=== PATIENT | female | born 1930 | race Caucasian/White ===

== ENCOUNTER 2017-01-27 14:24 | Inpatient (IN) | payer MEDICARE ==
[~2017-01-27] VITALS: Ht 147.3 cm; Wt 77.6 kg
--- NOTE | 2017-01-27 14:38 | ED.REPORT ---
HPI-Extremity Problem Upper Date of Service Jan 27, 2017 ED Provider: Rick Stanley MD Danyell Stein (Tenisha) is a pleasant 86-year-old woman history of hypothyroidism presents to the [facility] emergency department after suffering ground-level fall. Reportedly "my balance left me" she fell onto her right hip and hit her head on the way to the floor on her end-table. She denies losing consciousness. Her daughter was able to give me additional history that she was attempting to move a recliner and estimates her mother was on the floor for about 10 minutes before the patient was found. Patient was unable to be maneuvered into a supine position, she received 62.5 mg of fentanyl en route via EMT as well as 32mg of ketamine. She denies any previous falls or any other instances of losing her balance in the preceding weeks. Nursing Notes Stated Complaint: POSSIBLE HUMERUS FX Nursing Notes Reviewed: Yes Allergies: Uncoded Allergies: ALL ANTIBIOTICS (Allergy, Unknown, 01/27/17) Scheduled Levothyroxine (Levothyroxine) 75 Mcg Tablet 75 MCG PO QAM General Time Seen by MD: 14:35 Chief Complaint Other (R hip Injury, Ground level fall, Head injury) Similar Sx Previous: No Past Medical History Past Medical History Hypothyroidism Past Surgical History Amputation of right foot, status post reattachment Family History Noncontributory Smoking History Never Smoker Social History Lives independently, with family in close proximity Alcohol Use: Denies alcohol use Ambulatory Status Independent Review of Systems Basic Review of Systems Eyes: Vision NL ENT: Hearing NL Respiratory: No shortness of breath Cardiovascular: No chest pain GI: No abdominal pain : No dysuria Endocrine: No cold intolerance, No heat intolerance Allergy / Immune: No allergy Psychiatric: Normal thought content Complete sys rev & neg: except as marked. Physical Exam General: Laying in bed left lateral decubitus position, moderate distress. Alert and oriented 3 HEENT: Normocephalic, there is a small laceration with dried blood to occiput. Mucous membranes moist, conjunctiva pink, head exam is limited secondary to patient's inability to move in her current position due to pain in her hip. Cardiovascular: Regular rate and rhythm, exam limited due to patient's inability to provide access to anterior thorax due to pain. Bilateral radial pulses 2/4, dorsal pedalis nonpalpable right lower extremity, 2 out of 4 DP left lower extremity. Cap refill is normal in all 4 extremities. Pulmonary: Clear to auscultation bilaterally, no W/R/R. [place] along posterior posts Abdominal: Soft to palpation, bowel sounds present 4, no hepatosplenomegaly. Negative rebound. Extremities: No edema appreciated. No tenderness, asymmetry. Neuro: Neurologically grossly intact, strength is equal bilaterally upper and lower extremities. MSK: Exquisite tenderness with any manipulation of right lower extremity, tenderness over right hip, one of most tenderness medial proximal thigh. Psych: Patient is alert, answers appropriately, mildly somnolent at time of exam. Initial Vital Signs Vital Signs (First) Date Time Temp Pulse Resp B/P Pulse Ox O2 Delivery O2 Flow Rate FiO2 01/27/17 14:39 35.8 90 18 166/71 97 Room Air Initial VS: Reviewed Interpretation & Diagnostics Lab Results Interpretation Result Diagram: 01/29/17 0538 01/29/17 0538 Test 01/27/17 14:53 01/27/17 17:41 Prothrombin Time 9.7sec (8.1-12.5) Prothromb Time International Ratio 0.91ratio Urine Color Yellow (YELLOW) Urine Appearance Hazy (CLEAR,HAZY) Urine pH 5.5 (5.0-8.0) Urine Specific [place] 1.025 (1.003-1.035) Urine Protein Tracemg/dL (NEG,TRACE) Urine Glucose (UA) Negativemg/dL (NEGATIVE) Urine Ketones Tracemg/dL (NEGATIVE) Urine Occult Blood Small (NEGATIVE) Urine Nitrite Positive (NEGATIVE) Urine Bilirubin Negative (NEGATIVE) Urine Urobilinogen Normalmg/dL (NORMAL) Urine Leukocyte Esterase Trace (NEGATIVE) Urine RBC 0-2/hpf (0-2) Urine WBC 6-10/hpf (0-5) Urine Epithelial Cells Occasional/hpf (NONE-MOD) Urine Crystals None seen (NONE SEEN) Urine Bacteria Many/hpf (NONE-FEW) Urine Hyaline Casts None/lpf (NONE) Urine Granular Casts None seen (NONE SEEN) Urine Waxy Casts None seen (NONE SEEN) Urine Red Blood Cell Casts None seen (NONE SEEN) Urine White Blood Cell Casts None seen (NONE SEEN) Urine Mucus None seen (None Seen) Urine Trichomonas None seen (NONE SEEN) Urine Yeast None (NONE SEEN) Urine Culture Reflexed Indicated Lab Results Interpretation: Mildly elevated blood glucose Urinalysis trace leukocyte esterase Re-Eval/Medical Decision Med Decision/Clinical Course Patient received a head CT which was negative for bleed, evaluation of her hip with 2 view x-ray demonstrated proximal intertrochanteric fracture, orthopedist audit consultant Dr. Quinton Rizo reviewed the images, and agreed that the patient needed to be admitted for hip fracture intervention. Findings were discussed with the patient and finally, questions were answered, Dr. Rizo saw the patient in the department. Patient was admitted to Dr. Mooney Discharge & Departure Impression: Primary Impression: Hip fracture, right Encounter type: initial encounter Fracture type: closed Qualified Code: S72.001A - Fracture of unspecified part of neck of right femur, initial encounter for closed fracture Disposition: ADMITTED TO HOSPITAL Referrals: Philippe Sinclair MD (PCP) EDSupervising Provider for APC: Rick Stanley MD Attending Statement I discussed patient with resident Ashley. I saw patient independently and agree with plan as above. In brief, 86-year-old female presents status post ground level fall onto her right hip. Right intertrochanteric hip fracture. Right lower extremity is neurovascularly intact. Her hemoglobin is stable. She is hemodynamically stable. Discussed with orthopedics Dr. Hannah who requested admission to the hospitalist service and nothing by mouth at midnight. Given head trauma and small posterior head laceration, CT Brain performed with no acute pathology. She is not on blood thinners. copies to: Philippe Sinclair MD, Ben M MD Jan 27, 2017 14:38 Moses Ramirez DO Jan 27, 2017 14:55 Small (NEGATIVE) Urine Nitrite Positive (NEGATIVE) Urine Bilirubin Negative (NEGATIVE) Urine Urobilinogen Normalmg/dL (NORMAL) Urine Leukocyte Esterase Trace (NEGATIVE) Urine RBC 0-2/hpf (0-2) Urine WBC 6-10/hpf (0-5) Urine Epithelial Cells Occasional/hpf (NONE-MOD) Urine Crystals None seen (NONE SEEN) Urine Bacteria Many/hpf (NONE-FEW) Urine Hyaline Casts None/lpf (NONE) Urine Granular Casts None seen (NONE SEEN) Urine Waxy Casts None seen (NONE SEEN) Urine Red Blood Cell Casts None seen (NONE SEEN) Urine White Blood Cell Casts None seen (NONE SEEN) Urine Mucus None seen (None Seen) Urine Trichomonas None seen (NONE SEEN) Urine Yeast None (NONE SEEN) Urine Culture Reflexed Indicated Lab Results Interpretation: Mildly elevated blood glucose Urinalysis trace leukocyte esterase Re-Eval/Medical Decision Med Decision/Clinical Course Patient received a head CT which was negative for bleed, evaluation of her hip with 2 view x-ray demonstrated proximal intertrochanteric fracture, orthopedist audit consultant Dr. Quinton Rizo reviewed the images, and agreed that the patient needed to be admitted for hip fracture intervention. Findings were discussed with the patient and finally, questions were answered, Dr. Rizo saw the patient in the department. Patient was admitted to Dr. Mooney Discharge & Departure Impression: Primary Impression: Hip fracture, right Encounter type: initial encounter Fracture type: closed Qualified Code: S72.001A - Fracture of unspecified part of neck of right femur, initial encounter for closed fracture Disposition: ADMITTED TO HOSPITAL Referrals: Philippe Sinclair MD (PCP) EDSupervising Provider for APC: Rick Stanley MD Attending Statement I discussed patient with resident Ashley. I saw patient independently and agree with plan as above. In brief, 86-year-old female presents status post ground level fall onto her right hip. Right intertrochanteric hip fracture. Right lower extremity is neurovascularly intact. Her hemoglobin is stable. She is hemodynamically stable. Discussed with orthopedics Dr. Hannah who requested admission to the hospitalist service and nothing by mouth at midnight. Given head trauma and small posterior head laceration, CT Brain performed with no acute pathology. She is not on blood thinners. copies to: Philippe Sinclair MD, Ben M MD Jan 27, 2017 14:38 Moses Ramirez DO Jan 27, 2017 14:55
[2017-01-27 14:39] VITALS: BP 166/71; PULSE 90; RESP 18; O2SAT 97
[2017-01-27] MEDS ORDERED: HYDROmorphone 0.5 mg/0.5 mL iSecure Syringe ONE (15:00)
[2017-01-27 15:01] LABS: BASOPHILS % (AUTO) 0.3 % (0-3); EOSINOPHILS % (AUTO) 1.3 % (0-5); MONOCYTES % (AUTO) 11.8 % (4-12); Mean Corpuscular Hemoglobin 29.2 pg (27.0-35.0); Mean Corpuscular Volume 88.7 fL (81-100); Platelet Count 314 bil/L (150-400)
[2017-01-27] MEDS: HYDROmorphone 0.5 mg/0.5 mL iSecure Syringe IVPUSH PRN ×4 (15:05→19:17)
[2017-01-27] MEDS ORDERED: Ondansetron 2 mg/mL 2 mL Inj IVPUSH PRN ×3 (15:25→17:00)
[2017-01-27 16:02] LABS: INR 0.91 ratio
--- NOTE | 2017-01-27 16:04 | DRSVH ---
PROCEDURE: CT BRAIN WITHOUT CONTRAST ([id number]) INDICATIONS: GLF with head injury TECHNIQUE: Noncontrast 4.5 mm thick angled axial sections acquired from the foramen magnum to the vertex, with c oronal reformats. COMPARISON: None. FINDINGS: Image quality: Excellent. CSF spaces: Basal cisterns are patent. No extra-axial fluid collections. The ventricles are symmet silvano in size and shape. There is mild cerebral volume loss, with resultant ventricular and sulcal pro minence. Brain: No intracranial hemorrhage, mass, or mass effect. There are subcortical, periventricular and deep white matter hypodensities consistent with mild chronic small vessel ischemic changes. There i s a focal hypodensity in the right caudate head consistent with a prior lacunar infarct. There is int racranial internal carotid artery atherosclerosis. Skull and face: Calvarium and visualized facial bones appear intact, without suspicious lesions. Sinuses: Visualized sinuses and mastoids are clear. IMPRESSION: 1. No acute intracranial abnormality. 2. 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 3. Mild cerebral volume loss and chronic white matter small vessel ischemic changes. Dictated by: Colt Pa M.D. on 01/27/2017 at 15:58 Approved by: Colt Pa M.D. on 01/27/2017 at 16:02
--- NOTE | 2017-01-27 16:19 | DRSVH ---
PROCEDURE: X-RAY RIGHT HIP COMPLETE, MINIMUM TWO VIEWS ([id number]) INDICATIONS: Ground level fall, unable to move leg TECHNIQUE: 2 views of the hip were acquired. COMPARISON: None. FINDINGS: Bones: There is a fracture of the proximal right femoral shaft with an intertrochanteric/subtrochante silvano region. No dislocation is evident. No suspicious osseous lesions are present. The remainder of the imaged osseous structures appear to be intact. Degenerative changes of the lower lumbar spine, right sacroiliac joint, and pubis symphysis are present. Soft tissues: No suspicious soft tissue calcifications or masses. IMPRESSION: Mildly impacted intertrochanteric proximal right femur fracture. Dictated by: Singh Vega M.D. on 01/27/2017 at 15:17 Approved by: Singh Vega M.D. on 01/27/2017 at 15:18
[2017-01-27] MEDS ORDERED: LEVO75TA4 PO ×2 (16:32→17:04)
[2017-01-27] MEDS ORDERED: Alum-Mag Hydrox-Simeth 30 mL Suspension PO PRN ×2 (16:55→17:00)
[2017-01-27 17:00] VITALS: BP 159/58; PULSE 90; RESP 15; O2SAT 92
[2017-01-27] MEDS ORDERED: Polyethylene Glycol (PEG) 17 Gm Powder PO PRN (17:00)
--- NOTE | 2017-01-27 17:13 | PCM.HPMED ---
Subjective Date of Service Jan 27, 2017 Primary Provider: Admitting Physician: Primary Care Physician: Philippe Sinclair MD Attending Physician: Admit Status: From the Emergency Department, Admit to [facility] Team Chief Complaint: Right Hip Pain, Fall History of Present Illness: Patient is an 86 year old female with a past medical history of Hypothyroidism. She presents to the ER at [facility] after she suffered a fall earlier today. She was trying to move her recliner and tripped over her own feet and lost her balance. She fell to the ground hitting her head against a table. Pt immediately felt extreme pain in her right hip. Pt was unable to move. Pts daughter found her laying on the floor approximately 10 minutes after she fell. Pt denies ever losing conciousness. Pt denies any recent weakness, chest pain , shortness of breath, palpitations, or visual changes. No other complaints or concerns at this time. Review of Systems: All systems reviewed and are negative except for what has already been mentioned in the HPI. Allergies Uncoded Allergies: ALL ANTIBIOTICS (Allergy, Unknown, 01/27/17) Home Medications 1. Levothyroxine 75 mcg PO daily PMH 1. Hypothyroidism Surgical History 1. Ventral Hernia Repair, 2011 Social History Hx Alcohol Use: No Hx Substance Use: No Hx Tobacco Use: No Exam Vital Signs Vital Sign - Last Date Time Temp Pulse Resp B/P Pulse Ox O2 Delivery O2 Flow Rate FiO2 01/27/17 14:39 35.8 90 18 166/71 97 Room Air Exam GENERAL: NAD, Pt laying bed fairly comfortably HEENT: AT/NC, PERRLA, EOMI, MM Moist CARDIAC: Soft, holosystolic murmur present; RRR PULM: CTAB EXT: No C/C/E; No calve tenderness bilaterally SKIN: Warm, dry, pink, and intact NEURO: Alert and oriented x3; Following all commands PSYCH: Normal mood and affect Lab and Diagnostics Result Diagram: 01/27/17 1453 01/27/17 1453 X-Rays, CTs and MRIs X-RAY RIGHT HIP COMPLETE, MINIMUM TWO VIEWS INDICATIONS: Ground level fall, unable to move leg TECHNIQUE: 2 views of the hip were acquired. COMPARISON: None. FINDINGS: Bones: There is a fracture of the proximal right femoral shaft with an intertrochanteric/subtrochanteric region. No dislocation is evident. No suspicious osseous lesions are present. The remainder of the imaged osseous structures appear to be intact. Degenerative changes of the lower lumbar spine , right sacroiliac joint, and pubis symphysis are present. Soft tissues: No suspicious soft tissue calcifications or masses. IMPRESSION: Mildly impacted intertrochanteric proximal right femur fracture. Assessment & Plan Patient is an 86 year old female with a past medical history of Hypothyroidism who is admitted to hospital with Acute Right Hip Fracture. 1. Hip Fracture, Right, Acute - Present on admission - Secondary to mechanical ground level fall - Start Morphine 1-2 mg IV q 4 hours PRN severe pain - NPO after midnight - Orthopedics has been consulted by the ER, and pt will be taken to OR in AM 2. Hypothyroidism - Continue home dose of Levothyroxine 3. Disposition - Anticipate discharge to home pending clinical course, but pt will likely remain in hospital at least two midnights FULL CODE, per discussion with patient and her daughter Gregory Mooney MD Jan 27, 2017 17:13
[2017-01-27] MEDS ORDERED: LORazepam 0.5 mg Tablet PO ONE (17:15)
[2017-01-27 17:59] VITALS: BP 163/54; PULSE 88; RESP 15; O2SAT 91
[2017-01-27 18:22] LABS: APPEARANCE,URINE HAZY (CLEAR,HAZY); COLOR,URINE YELLOW (YELLOW); OCCULT BLOOD,URINE SMALL (NEGATIVE); PH,URINE 5.5 (5.0-8.0)
[2017-01-27 18:23] LABS: UROBILINOGEN,URINE NORMAL (NORMAL)
--- NOTE | 2017-01-27 18:58 | DRSVH ---
PROCEDURE: X-RAY RIGHT FEMUR, TWO VIEWS ([id number]) INDICATIONS: trauma TECHNIQUE: 9 views of the femur were acquired. COMPARISON: None. FINDINGS: Bones: Subtle inter/sub-trochanteric right femur fracture, moderately displaced with medial displacem ent of the distal fracture fragment Soft tissues: No suspicious soft tissue calcifications or masses. IMPRESSION: Right femur inter-/subtrochanteric fracture Dictated by: Juan Carlos Nielsen M.D. on 01/27/2017 at 18:49 Approved by: Juan Carlos Nielsen M.D. on 01/27/2017 at 18:56
--- NOTE | 2017-01-27 18:59 | DRSVH ---
PROCEDURE: X-RAY CHEST ONE VIEW ([id number]) INDICATIONS: trauma TECHNIQUE: One view of the chest was acquired. COMPARISON: None. FINDINGS: Surgical changes and devices: None. Lungs and pleura: No pleural effusions or pneumothorax. No acute consolidation. Diffuse scarring/ate lectasis. Mediastinum: Mediastinal contours appear normal. Heart size is normal. Bones and chest wall: No suspicious bony lesions. Overlying soft tissues appear unremarkable. IMPRESSION: No acute disease. Diffuse scarring/atelectasis. Dictated by: Juan Carlos Nielsen M.D. on 01/27/2017 at 18:56 Approved by: Juan Carlos Nielsen M.D. on 01/27/2017 at 18:57
--- NOTE | 2017-01-27 19:00 | DRSVH ---
PROCEDURE: X-RAY PELVIS, ONE OR TWO VIEWS ([id number]) INDICATIONS: trauma TECHNIQUE: Single view(s) of the pelvis acquired. COMPARISON: None. FINDINGS: Bones: Moderately displaced right femur inter-and subtrochanteric fracture. Chronic discogenic change s in the visualized lumbar spine. Mild bilateral hip joint degeneration. Soft tissues: Visualized bowel gas pattern is normal. No suspicious soft tissue calcifications. IMPRESSION: Proximal right femur fracture as above Dictated by: Juan Carlos Nielsen M.D. on 01/27/2017 at 18:57 Approved by: Juan Carlos Nielsen M.D. on 01/27/2017 at 18:58
[2017-01-27 19:07] VITALS: BP 163/58; PULSE 72; RESP 16; O2SAT 88
--- NOTE | 2017-01-27 20:01 | DRSVH ---
PROCEDURE: X-RAY RIGHT ANKLE, MINIMUM THREE VIEWS ([id number]) INDICATIONS: previous surgery, new injury TECHNIQUE: 3 views of the ankle were acquired. COMPARISON: None. FINDINGS: Bones: No fractures or dislocations. Ankle mortise is normally aligned. No suspicious bony lesions . Plantar and posterior calcaneal spurring. Screw fixation of the medial malleolus and distal tibia fibular syndesmosis. Hardware appears intact and no evidence of loosening or failure Soft tissues: No tibiotalar joint effusion. Achilles tendon appears normal. IMPRESSION: No acute fracture. No surgical changes as above. Chronic plantar and posterior calcaneal spurring Dictated by: Juan Carlos Nielsen M.D. on 01/27/2017 at 19:56 Approved by: Juan Carlos Nielsen M.D. on 01/27/2017 at 19:58
--- NOTE | 2017-01-27 20:06 | DRSVH ---
PROCEDURE: CT PELVIS WITHOUT CONTRAST ([id number]) INDICATIONS: PAIN, FX? WITH 3 VIEW RECONSTRUCTION PER YASH TORRES TECHNIQUE: Noncontrast 3 mm axial sections acquired through the bony pelvis, with coronal and sagittal reformatt ing. COMPARISON: None. FINDINGS: Image quality: Excellent. Bones: There is a comminuted fracture of the proximal right femur involving the femoral neck and exte nding to the intertrochanteric and subtrochanteric region. There is medial displacement of the distal fracture fragment approximately one shaft width. Femoral heads appear well-seated within the acetabu lum bilaterally. There is diffuse osteopenia and lower lumbar discogenic changes. Soft tissues: Incidental colonic diverticulosis otherwise the pelvic contents grossly unremarkable. T here is a Billings catheter present. IMPRESSION: Comminuted fracture of the proximal right femur involving the base of the femoral neck, intertrochant halie and subtrochanteric regions. Diffuse osteopenia. Dictated by: Juan Carlos Nielsen M.D. on 01/27/2017 at 19:59 Approved by: Juan Carlos Nielsen M.D. on 01/27/2017 at 20:05
[2017-01-27 20:14] VITALS: BP 163/58; PULSE 72; RESP 16; O2SAT 88
[2017-01-27 20:39] VITALS: BP 175/83; PULSE 91; RESP 16; O2SAT 99
--- NOTE | 2017-01-27 20:41 | NUR ---
Admit Note Pt. arrived on floor at 2030. Pt. was alert and oriented x3. Pt's peripheral IV intact. Pt. is on 2 liters of oxygen via nasal cannula. Daughter and granddaughter in room. Will continue to monitor.
[2017-01-27] MEDS: 0.9% Sodium Chloride 1,000 ML IV SCH (20:55)
[2017-01-27] MEDS: Famotidine Inj 20 MG in IV Premix 1 EACH IV SCH (20:56)
--- NOTE | 2017-01-27 21:43 | CONS ---
[address] [address] CONSULTATION REPORT PATIENT: PRASANNA ALONSO : 1930 MR#: [id number] ADMIT: 01/27/2017 JOB ID: [id number] DATE OF SERVICE: 01/27/2017 (Orthopedic consultation in the emergency room, CPT code - 44507-12 with decision for surgery) CHIEF COMPLAINT: This is an 86-year-old female, who, I was asked to see in orthopedic consultation by emergency department physician as well as the hospitalist service for comminuted reverse obliquity right intertrochanteric-subtrochanteric femoral fracture. The patient sustained a ground level fall and was taken to the emergency department. There was no loss of consciousness. The patient does have a history of hypothyroidism but reports that she does not have any other major medical problems. She normally tries to exercise regularly with walking. REVIEW OF SYSTEMS: HEENT: No blurring of vision. No problems with hearing. Respiratory: No shortness of breath. Cardiovascular: No chest pain. GI: No nausea or vomiting. : No dysuria. Musculoskeletal: Pain in the right hip and leg. Neuro: No headache or dizziness. Psychiatric: No anxiety or depression. ALLERGIES: Patient is allergic to seems to be most all antibiotics and will need to check with Infectious Disease as to what kind of antibiotics we can give her. It also appears she might have urinary tract infection. CURRENT MEDICATIONS: Include levothyroxine 75 mcg per day. PAST MEDICAL HISTORY: Positive for hypothyroidism. PRIOR SURGERIES: She had ventral hernia repair in 2011. She also had a significant right ankle lower tib-fib severe injury that was evidently a fracture with also some significant soft tissue injury that was treated in the past with open reduction and internal fixation. The patient has also had some sort of large skin cancer that was removed from that lower leg. SOCIAL HISTORY: The patient does not smoke or drink. She lives independently. 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 PHYSICAL EXAMINATION: Well-developed, well-nourished female. Temperature 35.8, pulse is 72, respirations 16, blood pressure 163/58, pulse ox of 88. The patient is comfortable since she has had some recent pain medication. She is lying with the right hip somewhat flexed. Peripheral pulses appear to be intact. The patient is able to move her foot. She has multiple surgical incisions around the right ankle. Calf is soft. The thigh is not significantly swollen. Right leg is shortened. X-rays show that she has a reverse obliquity comminuted right intertrochanteric-subtrochanteric femoral fracture. There is a vertical split in the greater trochanter basicervical fracture line and also lesser trochanteric injury. The fracture extends down to the subtrochanteric level of the bone several centimeters distal to the lesser trochanter.Additional CT scan with 3-D reconstruction has been oredered to further evaluate the actual distal extension of the subtrochanteric portion of the fracture. LABORATORY TESTING: Shows INR of 0.91, PT of 9.7. Sodium 142, potassium 3.8, chloride 101, CO2 22, BUN 23, creatinine 0.80. Calcium 10. Total bilirubin 0.2. AST 22, ALT 14. Alkaline phosphatase 87, total protein 7.8, albumin 3.9. White count 9100, hemoglobin 12.6, hematocrit 38.3. Urinalysis shows frequent bacteria and 6-10 white cells, with probable urinary tract infection. IMPRESSION: Comminuted reverse obliquity, right intertrochanteric-subtrochanteric femoral fracture. Fracture is relatively significant from a ground level fall and there is always a potential this could be a pathologic fracture. We will order a CT scan of the pelvis including the hip for further delineation. If, at the time of surgery, some bone reamings can be obtained, these could also be sent to pathology for evaluation. The patient is to remain n.p.o. after midnight. We will plan for surgery sometime tomorrow. I have explained the risks for bleeding, infection, pain, and stiffness, possibility for damage to surrounding neurovascular structures. Potential for delayed union, nonunion, malunion, hardware failure. There is also potential for DVT, pulmonary emboli, and a significant or fatal cardiopulmonary event. Surgical consent has been signed. I have given surgical information to the daughters as well as the patient. They are aware that the patient needs to have the hip fixed so that she may be mobilized out of bed to chair and then eventually be able to ambulate to decrease the risk for morbidity and potential mortality. She has good mental status and was living alone and I did indicate to them that puts her in a better category for surgery, pre as well as postoperatively. Surgical consent has been signed. She will be admitted to the hospital service and repeat H and H will be checked in the morning. CC: [facility] CC: Ashtyn Fitch
[2017-01-28] VITALS (9 sets, daily range): BP systolic 158–180; BP diastolic 57–73; PULSE 75–88; RESP 14–20; O2SAT 98–100
[2017-01-28] MEDS ORDERED: SODIUM CHLORIDE 0.9% IV ONE (06:00)
[2017-01-28] MEDS ORDERED: DAPTOMYCIN IV ONE (06:00)
[2017-01-28] MEDS: 0.9% Sodium Chloride 1,000 ML IV SCH ×2 (07:24→13:00)
[2017-01-28] MEDS: Famotidine Inj 20 MG in IV Premix 1 EACH IV SCH ×2 (08:03→19:54)
[2017-01-28 08:11] LABS: BASOPHILS % (AUTO) 0.1 % (0-3); EOSINOPHILS % (AUTO) 0.1 % (0-5); MONOCYTES % (AUTO) 12.6 % (4-12); Mean Corpuscular Hemoglobin 28.8 pg (27.0-35.0); Mean Corpuscular Volume 89.2 fL (81-100); NEUTROPHILS % (AUTO) 69.8 % (40-74); Platelet Count 233 bil/L (150-400)
[2017-01-28] MEDS ORDERED: Lactated Ringer's 1,000 ML IV ONE ×3 (09:35→14:42)
[2017-01-28] MEDS ORDERED: Lactated Ringer's 1,000 ML IV SCH (10:26)
[2017-01-28] MEDS ORDERED: Lactated Ringer's 500 ML IV PRN (10:26)
[2017-01-28] MEDS ORDERED: Dexamethasone 4 mg/mL Inj IVPUSH PRN (10:30)
[2017-01-28] MEDS ORDERED: MetoCLOpramide 5 mg/mL 2 mL Inj IVPUSH PRN (10:30)
[2017-01-28] MEDS ORDERED: HYDROmorphone 1 mg/mL Inj IVPUSH PRN (10:30)
[2017-01-28] MEDS ORDERED: fentaNYL-PF 50 mCg/mL 2 mL Inj IVPUSH PRN (10:30)
[2017-01-28] MEDS ORDERED: Ondansetron 2 mg/mL 2 mL Inj IVPUSH PRN (10:30)
[2017-01-28] MEDS ORDERED: EPHEDrine Sulfate 50 mg/mL Inj IVPUSH PRN (10:30)
[2017-01-28] MEDS ORDERED: Phenylephrine 10,000 mCg/mL Inj IVPUSH PRN (10:30)
--- NOTE | 2017-01-28 10:32 | PCM.PNMED ---
Subjective Date of Service Jan 28, 2017 Subjective Pt doing well this morning. Pt reports her pain is well managed. She is anxious to have surgery. No other complaints or concerns at this time. Exam Vital Signs Vital Sign - Last Date Time Temp Pulse Resp B/P Pulse Ox O2 Delivery O2 Flow Rate FiO2 01/28/17 07:15 Supplement Oxygen 01/28/17 05:58 36.9 76 20 164/65 100 2.00 Intake and Output 01/27/17 01/27/17 01/28/17 Cumulative From/Thru 15:00 23:00 07:00 01/27/17 20:37 - 01/28/17 06:29 Intake Total 939 ml 939 ml Balance 939 ml 939 ml IV Total 939 ml 939 ml Exam GENERAL: NAD, Pt laying in bed comfortably HEENT: AT/NC, PERRLA, EOMI, Mucus Membranes are moist CARDIAC: RRR; No M/R/G PULM: CTAB; No wheezes or rhonchi bilaterally NEURO: Alert and oriented x3; Following all commands IVs and Medications Medications Reviewed: Medications were reviewed in detail Lab and Diagnostics Result Diagram: 01/28/1747 01/28/17 0747 X-Rays, CTs and MRIs X-RAY RIGHT HIP COMPLETE, MINIMUM TWO VIEWS INDICATIONS: Ground level fall, unable to move leg TECHNIQUE: 2 views of the hip were acquired. COMPARISON: None. FINDINGS: Bones: There is a fracture of the proximal right femoral shaft with an intertrochanteric/subtrochanteric region. No dislocation is evident. No suspicious osseous lesions are present. The remainder of the imaged osseous structures appear to be intact. Degenerative changes of the lower lumbar spine , right sacroiliac joint, and pubis symphysis are present. Soft tissues: No suspicious soft tissue calcifications or masses. IMPRESSION: Mildly impacted intertrochanteric proximal right femur fracture. Assessment & Plan Patient is an 86 year old female with a past medical history of Hypothyroidism who is admitted to hospital with Acute Right Hip Fracture. 1. Hip Fracture, Right, Acute - Present on admission - Secondary to mechanical ground level fall - Continue Morphine 1-2 mg IV q 4 hours PRN severe pain - Pt to have surgery for fractured hip by Orthopedic Surgery today - Pt will need PT post operatively 2. Hypothyroidism - Continue home dose of Levothyroxine 3. Disposition - Anticipate discharge to home in the next 1-2 days with home health PT Gregory Mooney MD Jan 28, 2017 10:32
--- NOTE | 2017-01-28 11:34 | NUR ---
Off to OR Patient off to OR. At time of departure patient alert and oriented, pain within a tolerable level, denies nausea or other difficulty.
--- NOTE | 2017-01-28 11:43 | NUR ---
Social Work: Attempted Assessment D: Per EMR review, pt is an 86 year old female admitted for hip fracture. Pt is [facility] Medicare. PCP Is Philippe Sinclair MD. NOK is [place]. Advanced directives not completed- AS400 OPERATOR to follow up with pt. Readmit score is low, 0/8. AS400 OPERATOR attempted to meet with pt and family at bedside. Pt is currently off the floor for surgery. AS400 OPERATOR attempted to contact pt's daughter to complete assessment. Message left requesting return phone call to discuss discharge planning. Pt has a pending PT evaluation. Anticipate pt will likely require SNF versus HH. As pt is Medicare, pt will require an authorization. A: Pt who lives at home alone, and is I at baseline. P: Evolving; anticipate pt will likely require SNF or HH. AS400 OPERATOR to follow up with pt and family to complete initial assessment and discharge planning when pt returns to the floor and is able to engage with assessment. HERBER Simmons
[2017-01-28] MEDS ORDERED: Bupivacaine-MPF 0.25%/EPI 30 mL Inj INJ ONE (12:48)
[2017-01-28] MEDS ORDERED: diphenhydrAMINE 25 mg Capsule PO PRN (13:40)
[2017-01-28] MEDS ORDERED: Magnesium Hydroxide 10 mL Oral Concentration PO PRN (13:40)
[2017-01-28] MEDS ORDERED: Sodium Biphos-Phos 133 mL Enema RECTAL PRN (13:40)
[2017-01-28] MEDS ORDERED: HYDROmorphone 2 mg/mL Inj IVPUSH PRN (13:40)
[2017-01-28] MEDS ORDERED: Polyethylene Glycol (PEG) 17 Gm Powder PO PRN (13:40)
--- NOTE | 2017-01-28 13:42 | PCM.HPANE ---
Patient Data Surgeon Admitting Provider:Gregory Mooney MD Attending Provider:Gregory Mooney MD Primary Care Physician:Philippe Sinclair MD Other Provider: Reason for Visit Hip Fracture Ht/WT & BMI Height (Feet): 4 Height (Inches): 10.00 Weight (Kilograms): 77.600 Body Mass Index 35.91 Allergies Uncoded Allergies: ALL ANTIBIOTICS (Allergy, Unknown, 01/27/17) Past Anesthesia History Anesthesia History: Denies:: Anesthesia Reactions Diabetes History Hx Diabetes?: No MRSA MRSA: No Medications Reported Medications Levothyroxine 75 Mcg [id number] Mcg PO QAM 01/27/17 Discontinued Reported Medications Levothyroxine 75 Mcg [id number] Mcg PO QAM Ref 0 TAKES DAILY AT 0200 AM 01/27/17 History History of ENT Problems?: No Hx of Heart Problems?: No Hx of Respiratory Problem?: No Hx Neurologic Problems?: No Hx of GI Problems?: No Hx of Problems?: No Female Hx: Denies:: Currently Endometriosis Pelvic Inflammatory Problems with Breasts? Hx Musculoskeletal Problems?: Yes Musculoskeletal History: Positive for:: Musculoskeletal Trauma (possible fx after GLF-current dx) Hx of Psycho/Social Problems?: No Hx Surgeries?: Yes (skin ca removal, ventral hernia repair) Hx Any Other Health Problems?: Yes Other History: Positive for:: Cancer (skin ca) Thyroid Disease (hypothyroidism) Denies:: Hospitalization History Blood Transfusions: Positive for:: Accept Blood Products? Hx Diabetes: No Hx Alcohol Use: NoHx Substance Use: No Smoking Status: Never Smoker Stop/Bang Treated for Sleep Apnea?: No Do You Have a CPAP Machine?: No S-Snoring: Do You Snore Loudly: No T-Tired: feel tired, fatigued: No O-Obsered: Observed not breath: No P-Blood Pressure: treated: No B- Body Mass Index > 35 kg/m2: No A- Age over 50: Yes N- Neck Large Circumference: No G- Gender Male: No PAM Total Score: 0 Risk Assessment Category Category 1A: Patient has history of documented sleep apnea, and HAS NOT received any narcotic, sedative or anesthesia administration during this stay. Category 1B: Patient has history of documented sleep apnea, and HAS received any narcotic , sedative or anesthesia administration during this stay Category 2: Patient has SUSPECTED Obstructive Sleep Apnea, and HAS received any narcotic , sedative or anesthesia administration during this stay. Category 3: Patient has SUSPECTED Obstructive Sleep Apnea and HAS NOT received narcotic, sedative or anesthesia administration during this stay. Category 4: Outpatient in Procedural Areas with known sleep apnea or who screen positive for High Risk via the STOP/BANG questionnaire. Exam Exam Vital Signs Vital Signs Date Time Temp Pulse Resp B/P Pulse Ox O2 Delivery O2 Flow Rate FiO2 01/28/17 07:15 Supplement Oxygen 01/28/17 05:58 36.9 76 20 164/65 100 Nasal Cannula 2.00 01/28/17 01:32 36.6 88 17 180/73 99 Nasal Cannula 2.00 General Appearance: Alert, Oriented X3, Cooperative, No Acute Distress HEENT/AIRWAY: MP 3 Lungs: Clear to Auscultation Heart: Exam Unremarkable Meds/Labs/Diagnostics Admission Meds Current Medications Sodium Chloride 1,000 ml @ 100 mls/hr Q10H IV Last administered on 01/28/17 07 :24; Start 01/27/17 at 17:00 Famotidine/Sodium Chloride/Premix (Pepcid Inj/IV Premix) 50 ml @ 100 mls/hr Q12 IV Last administered on 01/28/17 08:03; Start 01/27/17 at 20:30 Lorazepam (Ativan Inj) 0.5 mg ONCE ONCE IVPUSH Last administered on 01/27/17 17:10; Start 01/27/17 at 17:35; Stop 01/27/17 at 17:37; Status DC Labs Test 01/27/17 14:53 01/27/17 17:41 01/28/17 07:47 Prothrombin Time 9.7sec (8.1-12.5) Prothromb Time International Ratio 0.91ratio Urine Color Yellow (YELLOW) Urine Appearance Hazy (CLEAR,HAZY) Urine pH 5.5 (5.0-8.0) Urine Specific [place] 1.025 (1.003-1.035) Urine Protein Tracemg/dL (NEG,TRACE) Urine Glucose (UA) Negativemg/dL (NEGATIVE) Urine Ketones Tracemg/dL (NEGATIVE) Urine Occult Blood Small (NEGATIVE) Urine Nitrite Positive (NEGATIVE) Urine Bilirubin Negative (NEGATIVE) Urine Urobilinogen Normalmg/dL (NORMAL) Urine Leukocyte Esterase Trace (NEGATIVE) Urine RBC 0-2/hpf (0-2) Urine WBC 6-10/hpf (0-5) Urine Epithelial Cells Occasional/hpf (NONE-MOD) Urine Crystals None seen (NONE SEEN) Urine Bacteria Many/hpf (NONE-FEW) Urine Hyaline Casts None/lpf (NONE) Urine Granular Casts None seen (NONE SEEN) Urine Waxy Casts None seen (NONE SEEN) Urine Red Blood Cell Casts None seen (NONE SEEN) Urine White Blood Cell Casts None seen (NONE SEEN) Urine Mucus None seen (None Seen) Urine Trichomonas None seen (NONE SEEN) Urine Yeast None (NONE SEEN) Urine Culture Reflexed Indicated White Blood Count 11.1th/mm3 (3.8-10.1) Red Blood Count 3.72mil/mm3 (3.90-5.20) Hemoglobin 10.7g/dL (12.0-15.6) Hematocrit 33.2% (35.0-46.0) Mean Corpuscular Volume 89.2fL (81-100) Mean Corpuscular Hemoglobin 28.8pg (27.0-35.0) Mean Corpuscular Hemoglobin Concent 32.2% (32.0-37.0) Red Cell Distribution Width 14.9% (12.3-15.4) Platelet Count 233bil/L (150-400) Neutrophils (%) (Auto) 69.8% (40-74) Lymphocytes (%) (Auto) 17.2% (14-46) Monocytes (%) (Auto) 12.6% (4-12) Eosinophils (%) (Auto) 0.1% (0-5) Basophils (%) (Auto) 0.1% (0-3) Sodium Level 141mEq/L (134-144) Potassium Level 4.3mEq/L (3.5-5.2) Chloride Level 104mEq/L (97-108) Carbon Dioxide Level 22mmol/L (18-29) Blood Urea Nitrogen 15mg/dL (8-27) Creatinine 0.58mg/dL (0.57-1.00) Estimat Glomerular Filtration Rate 141mL/min (>59) Glucose Level 124mg/dL (60-99) Calcium Level 8.7mg/dL (8.5-10.1) Total Bilirubin 0.5mg/dL (0.0-1.2) Aspartate Amino Transf (AST/SGOT) 16U/L (0-50) Alanine Aminotransferase (ALT/SGPT) 11U/L (0-32) Alkaline Phosphatase 72U/L (25-165) Total Protein 6.3g/dL (6.4-8.4) Albumin 3.4g/dL (3.4-5.0) Plan Impression Patient chart reviewed, patient interviewed and anesthestic plan with risks, benefits, and alternatives discussed, and informed consent obtained. ASA Physical Status: ASA2 Mod Systemic Disease Anesthetic Plan: GA, Regional Block (fascia iliaca block) Bene/Risks/Altern/Consents: Yes HP Complete Prior to Induction: Yes John Dodson MD Jan 28, 2017 08:58
--- NOTE | 2017-01-28 13:43 | PCM.ANEP1 ---
Post Anesthesia Phase 1 PACU Phase 1 Assessment Vital Signs Vital Signs Date Time Temp Pulse Resp B/P Pulse Ox O2 Delivery O2 Flow Rate FiO2 01/28/17 07:15 Supplement Oxygen 01/28/17 05:58 36.9 76 20 164/65 100 Nasal Cannula 2.00 Anesthetic Administered: GA Level of Alertness: Sleeping, hard to arouse SONI's with Equal Strength: Yes Pain: No (RN awares) Nausea or Vomiting: No Oxygen Delivery: Nasal Cannula Lungs: Clear to Auscultation Dermatome Level: Full Sensation John Dodson MD Jan 28, 2017 13:43
--- NOTE | 2017-01-28 13:53 | PCM.ANEP2 ---
Post Anesthesia Evaluation ASA/CMS Post Anesthesia VS in Patient's Normal Range?: Yes Resp Stable; Airway Patent?: Yes CV Function & Hydration Stable: Yes Mental Status Recovered?: Yes Pain control Satisfactory?: Yes N/V Control Satisfactory?: Yes John Dodson MD Jan 28, 2017 13:53
--- NOTE | 2017-01-28 15:26 | DRSVH ---
PROCEDURE: X-RAY RIGHT FEMUR, TWO VIEWS ([id number]) INDICATIONS: status post Right hip fx ORIF TECHNIQUE: 2 views of the femur were acquired. COMPARISON: [facility], CR, XR FEMUR 2VW RT, 01/27/2017, 18:03. FINDINGS: Bones: The intertrochanteric fracture of the right femur has been fixed with a Glaser screw and a l radha intramedullary susie. The susie is locked distally with 2 screws from a lateral to medial. Soft tissues: No suspicious soft tissue calcifications or masses. IMPRESSION: Fixation of intertrochanteric fracture with Eduardo's screw and long intramedullary susie. Dictated by: Leopoldo Meeks M.D. on 01/28/2017 at 15:24 Approved by: Leopoldo Meeks M.D. on 01/28/2017 at 15:25
--- NOTE | 2017-01-28 15:27 | DRSVH ---
PROCEDURE: X-RAY PELVIS W/LAT HIP (RT) ([id number]) INDICATIONS: status post right hip fracutre TECHNIQUE: AP pelvis with lateral view(s) of the right hip(s). COMPARISON: None. FINDINGS: Bones: There is been fixation of the proximal femoral fracture with a Eduardo's screw and intramedull rojas susie. The head of the femur is in the acetabulum. No fracture of the pelvic ring is seen. Soft tissues: The visualized bowel gas pattern is normal. No suspicious soft tissue calcifications. IMPRESSION: Fixation of the intertrochanteric fracture on the right femur with the Eduardo's type scr ew and long intramedullary susie . Dictated by: Leopoldo Meeks M.D. on 01/28/2017 at 15:25 Approved by: Leopoldo Meeks M.D. on 01/28/2017 at 15:26
--- NOTE | 2017-01-28 16:27 | OP ---
[address] [address] OPERATIVE REPORT PATIENT: PRASANNA ALONSO : 1930 MR#: [id number] ADMIT: 01/27/2017 JOB ID: [id number] DATE OF SURGERY: 01/28/2017 PREOPERATIVE DIAGNOSIS(ES): Comminuted right intertrochanteric-subtrochanteric down to the proximal to middle third of the femoral shaft reverse obliquity fracture. ICD -10 S72.141A, S72.21XA, S72.301A POSTOPERATIVE DIAGNOSIS(ES): Comminuted right intertrochanteric-subtrochanteric down to the proximal to middle third of the femoral shaft reverse obliquity fracture. Fracture composed of at least six bony fragments noted on CT scan. ICD-10 S72.141A, S72.21XA, S72.301A PROCEDURE: Open reduction, internal fixation, comminuted right intertrochanteric-subtrochanteric femoral fracture down to the proximal to middle third of the femoral shaft reverse obliquity fracture with a locked Synthes trochanteric femoral nail 340 mm length by 11 mm diameter, 125 degree angle susie with a 95 mm compression screw and two distal interlocking screws. CPT - [id number] SURGEON: Quinton Rizo MD CREDIT OR LOANS OFFICER: Jeny Jiang PA-C (Jeny Jiang was an integral portion of the procedure, helping with positioning and retraction during the procedure for this severely comminuted fracture). ANESTHESIA: General plus supplemental regional block for postoperative analgesia. DRAINS: None. COMPLICATIONS: None. ESTIMATED BLOOD LOSS: 200 mL. SPONGE AND NEEDLE COUNT: Correct. SPECIMEN: Additional specimen was sent to Pathology including bony reamings from the proximal portion of the femur and hip to rule out pathologic femoral fracture. INDICATIONS: This is an 86-year-old female, who sustained a severely comminuted right intertrochanteric-subtrochanteric femoral fracture with a fracture that actually extended down between the middle and proximal third of the femoral shaft reverse obliquity type of fracture when she fell from a ground level fall. Evidently fell over a cement cat that was about 2 feet tall and landed on her right side. A CT scan with 3D reconstruction was performed initially along with additional x-rays showing the severity of the fracture and the extension of the fracture well low into the subtrochanteric area and down extending to between the proximal third and middle third of the femoral shaft. There was also a basicervical component noted. DETAILS OF PROCEDURE: Under adequate general anesthesia, patient was placed carefully on the fracture table with the right leg in the traction and the left leg in the leg bravo and placed in a scissor technique in order to obtain good radiographic result. The fracture was reduced out to length and image intensification pictures were taken. The right leg was then prepped and draped in sterile fashion. After appropriate time-out was called, incision was fashioned over the proximal aspect of the right hip just proximal to the greater trochanter. Incision was carried down through the tensor fascia jett. Utilizing blunt spreading of muscle technique, guidepin was introduced with the curved awl into the proximal portion of the femur. That guidepin needed to be adjusted utilizing a parallel guide in order to provide good alignment. The entry reamer was then utilized to enlarge the canal proximally. Those reamings from the opening reamer were sent to pathology to rule out a pathologic fracture. A guidepin was placed down the femoral shaft and documented on AP and lateral views. It was however noted to be slightly anterior distally. In order to prevent notching of the femur distally that guidepin was then removed and reinserted with the reduction tool. The guidepin was then subsequently reinserted and finally was positioned distally slightly away from the anterior cortex of the distal femur. Utilizing sequential reamers, the femoral shaft was reamed up to 12.5 mm. The susie was measured and it was decided that a 340 mm susie would be the most optimal size. A 340 mm 125 degree Synthes trochanteric femoral nail was then placed in the femur over the guide susie and tapped into position. Once the position of the susie was in adequate position, the ball-tip guide was then removed from the susie. Please note that there was no notching of the femur anteriorly at the level of the knee. Attention was next turned to the guide pin to be placed for the compression screw in the femoral neck and head. The ball tipped guide was removed from the femur. The alignment jig was placed over the lateral aspect of the femur and a small incision was fashioned over the lateral aspect of the femur, taking it down to the tensor fascia jett, and the muscle was swept away from the edge of the bone. A guidepin was then introduced into the alignment jig into the femoral neck and head. It was measured and documented in good position on AP and lateral views. It was felt that a 95 mm compression screw would be of the best length. This was subsequently reamed on the outer cortex with larger reamer and then the smaller reamer was used to ream more proximally. A 95 mm compression screw was then placed in position over the guidepin and documented to be in good position in AP and lateral views. The proximal portion of the susie was then subsequently locked and care was taken to make sure that the compression screw was placed in the right position. Once the proximal portion of the susie was locked, it was then turned back 180 degrees to allow for compression as needed. The alignment jig for the compression screw was removed and permanent x-rays were taken. The alignment jig for the susie itself was then subsequently loosened and removed. Attention was next turned to the distal interlock screws. Incision was fashioned over the distal portion of the femur, over the two distal interlock screw holes. Image intensification was utilized making perfect circles to rest assured good placement of the screws. Incision was carried down to the tensor fascia jett and the vastus lateralis muscle was swept from the lateral aspect of the femur. The most distal interlock screw was subsequently drilled, measured and appropriate screw length applied. More proximal screw hole in the oblong hole was drilled, measured, and appropriate screw length applied. One of the screws needed to be changed since it was slightly longer. Image intensification confirmed good position of the locked susie in AP and lateral views. Permanent x-rays were taken with image intensification. The wounds were irrigated with antibiotic solution. The two smaller incisions were closed along the tensor fascia jett with interrupted sutures of 0-Vicryl. The skin and subcutaneous tissues were closed with interrupted sutures of 0 and 2-0 Vicryl and skin reapproximated with dona. The proximal wound was irrigated with antibiotic solution and the tensor fascia jett was closed with interrupted [id number] sutures of #1 Vicryl. The subcutaneous layers were closed with interrupted sutures of 0 and 2-0 Vicryl and skin reapproximated with dona. Each of the wounds was infiltrated with 0.5% Marcaine with epinephrine and dosage according to Anesthesia, since she had already previously received a regional nerve block for some postoperative analgesia. Xeroform and dry sterile dressings were applied on the leg. Permanent x-rays were taken. The patient was carefully taken off the fracture table and placed in her bed in stable condition. She was taken to recovery room in stable condition. Sponge and needle counts correct. The bone specimen was sent to Pathology to rule out a pathologic fracture. Permanent x-rays in recovery room also confirmed good position of the hardware. PLAN: The patient will be slowly mobilized. She may be touchdown weightbearing on that right leg with a front wheeling Rolling walker. She will also need to be arranged to have referral to longterm facility. She has had one dose of daptomycin for antibiotics as per Infectious Disease, and she evidently is allergic to numerous other types of antibiotics. I recommend that a more detailed history be taken to try and find out exactly which antibiotics this patient is allergic to; which ones she has had in the past but evidently did not have daptomycin in the past. That single dose of daptomycin should last for up to 48 hours. No additional antibiotics are required. The patient should be covered with Lovenox for DVT prophylaxis for three weeks and certainly could be changed to one regular strength aspirin per day thereafter for an additional 1-2 weeks to decrease risk for DVT. cc: [facility] Orthopedics cc: Ashtyn Fitch
--- NOTE | 2017-01-28 17:34 | NUR ---
Return From PACU Patient returns from the PACU alert and oriented. Surgical dressing to surgical site clean, dry and intact. CMS intact, with patient able to move affected extremity, has sensation, brisk capillary refill and palpable pedal pulse. Ice applied to surgical site. Patient denies any pain or nausea. Billings catheter draining to gravity. Ordered fluids hung, SCDs in place. Patient placed on tele. Patient encouraged to cough and deep breathe. Care is ongoing.
[2017-01-28] MEDS: Senna-Docusate 8.6-50 mg Tablet PO SCH (19:57)
[2017-01-29] VITALS (9 sets, daily range): BP systolic 123–161; BP diastolic 57–71; PULSE 82–97; RESP 16–20; O2SAT 92–99
[2017-01-29] MEDS: 0.9% Sodium Chloride 1,000 ML IV SCH ×3 (01:11→15:51)
--- NOTE | 2017-01-29 03:54 | NUR ---
Update on pt. care Pt. has denied pain so far this shift. Pt. has tolerated PO fluids and jello well, and has not had any nausea or vomiting yet. Will continue to monitor.
[2017-01-29 06:13] LABS: BASOPHILS % (AUTO) 0 % (0-3); EOSINOPHILS % (AUTO) 0 % (0-5); MONOCYTES % (AUTO) 13.2 % (4-12); Mean Corpuscular Hemoglobin 28.9 pg (27.0-35.0); Mean Corpuscular Volume 90.3 fL (81-100); NEUTROPHILS % (AUTO) 72.9 % (40-74); Platelet Count 208 bil/L (150-400)
[2017-01-29] MEDS ORDERED: Ondansetron 2 mg/mL 2 mL Inj ONE (06:37)
[2017-01-29] MEDS ORDERED: Dexamethasone 4 mg/mL Inj ONE (06:37)
[2017-01-29] MEDS ORDERED: MetoCLOpramide 5 mg/mL 2 mL Inj ONE (06:37)
[2017-01-29] MEDS ORDERED: Rocuronium 10 mg/mL 5 mL Inj ONE (06:37)
[2017-01-29] MEDS ORDERED: Propofol 10,000 mCg/mL 20 mL Inj ONE (06:37)
[2017-01-29] MEDS ORDERED: fentaNYL-PF 50 mCg/mL 2 mL Inj ONE (06:37)
[2017-01-29] MEDS: Famotidine Inj 20 MG in IV Premix 1 EACH IV SCH ×2 (07:54→20:47)
[2017-01-29] MEDS: oxyCODONE-Acetamin 5-325 mg Tablet PO PRN ×3 (07:55→17:26)
[2017-01-29] MEDS: Senna-Docusate 8.6-50 mg Tablet PO SCH ×2 (07:55→20:48)
--- NOTE | 2017-01-29 09:25 | PCM.PNORTH ---
Subjective Date of Service: Jan 29, 2017 Visit Information: Reason for Visit Hip Fracture Surgery/Surgery Date Post-Op Day # 1 Date of Admission: Jan 27, 2017 at 17:56 Hospital Day # Subjective Patient states she is feeling "okay." She states she is able to move her leg but it feels "heavy." She states she is having no pain but is worried she will when she gets up. She will have physical therapy this morning and states that she has a high pain tolerance so she predicts she will do well. She expresses understand of her weightbearing limitations as she is touchdown weightbearing only on the right lower extremity. Postop General: No Complaints, No Shortness of Breath, No Chest Pain Pain Management: PO Objective Exam Objective Patient laying in bed Vital Signs and I/O Vital Sign - Last Date Time Temp Pulse Resp B/P Pulse Ox O2 Delivery O2 Flow Rate FiO2 01/29/17 08:57 97 01/29/17 08:02 Supplement Oxygen 01/29/17 07:52 36.7 16 161/69 99 1.00 Intake and Output 01/28/17 01/28/17 01/29/17 Cumulative From/Thru 15:00 23:00 07:00 01/27/17 20:37 - 01/29/17 05:10 Intake Total 2150 ml 731 ml 1065 ml 4885 ml Output Total 1250 ml 800 ml 2050 ml Balance 900 ml -69 ml 1065 ml 2835 ml Intake Oral 0 ml 400 ml 400 ml IV Total 2150 ml 331 ml 1065 ml 4485 ml Output Urine Total 1050 ml 800 ml 1850 ml Estimated Blood Loss 200 ml 200 ml # Bowel Movements 0 0 Lab & Micro Results Laboratory Tests Test 01/29/17 05:38 White Blood Count 11.5th/mm3 (3.8-10.1) Red Blood Count 2.98mil/mm3 (3.90-5.20) Hemoglobin 8.6g/dL (12.0-15.6) Hematocrit 26.9% (35.0-46.0) Mean Corpuscular Volume 90.3fL (81-100) Mean Corpuscular Hemoglobin 28.9pg (27.0-35.0) Mean Corpuscular Hemoglobin Concent 32.0% (32.0-37.0) Red Cell Distribution Width 14.7% (12.3-15.4) Platelet Count 208bil/L (150-400) Neutrophils (%) (Auto) 72.9% (40-74) Lymphocytes (%) (Auto) 13.6% (14-46) Monocytes (%) (Auto) 13.2% (4-12) Eosinophils (%) (Auto) 0% (0-5) Basophils (%) (Auto) 0% (0-3) Sodium Level 142mEq/L (134-144) Potassium Level 3.9mEq/L (3.5-5.2) Chloride Level 108mEq/L (97-108) Carbon Dioxide Level 24mmol/L (18-29) Blood Urea Nitrogen 10mg/dL (8-27) Creatinine 0.59mg/dL (0.57-1.00) Estimat Glomerular Filtration Rate 138mL/min (>59) Glucose Level 138mg/dL (60-99) Calcium Level 8.3mg/dL (8.5-10.1) Total Bilirubin 0.6mg/dL (0.0-1.2) Aspartate Amino Transf (AST/SGOT) 24U/L (0-50) Alanine Aminotransferase (ALT/SGPT) 12U/L (0-32) Alkaline Phosphatase 58U/L (25-165) Total Protein 5.5g/dL (6.4-8.4) Albumin 2.9g/dL (3.4-5.0) Microbiology 01/27/17 Urine Culture - Final, Complete Klebsiella Pneumoniae Result Diagram: 01/29/17 0538 01/29/17 0538 General Appearance: Alert, Oriented X3, Cooperative, No Acute Distress Extremities: Distal Pulses Palpable, Warm, No Edema, No Compartment Syndrom Noted, Thigh & Calf Soft/Nontender, Tenderness/Swelling Noted (around incisions) Postop Sensory Motor: Distal Motor Intact, Movement in Toes, Distal Sensation Intact, NVI Distally SURGICAL WOUND : Wound Location/Description Perioperative dressings clean, dry and intact Incision General Appearance: [place], No Direct Observation Activity: Activity per PT, Ambulate with PT (Touchdown weightbearing with the RLE) Catheters: Urethral 2 Way Billings Assessment & Plan Impression POD#1 Right hip intramedullary rodding Problems: Plan Weightbearing: Touchdown weightbearing with a front-wheeled walker DVT prophylaxis: Lovenox 40 mg subcutaneous 3 weeks followed by aspirin 325 mg twice a day 3 weeks Physical therapy for transfers, progressive ambulation, strengthening Wound care: Reinforce dressing as needed. Will be changed tomorrow. Analgesia: Continue PO pain medications Discharge plan: Discharge to a SNF vs home in 1-2 days. Follow-up plan: In 2 weeks at [facility] for wound check and again at [address] Rizo. Jeny Jiang PA-C Jan 29, 2017 09:25
--- NOTE | 2017-01-29 09:29 | PCM.PNMED ---
Subjective Date of Service Jan 29, 2017 Subjective Pt doing well. She has no complaints or concerns at this time. She reports her pain is well controlled. Exam Vital Signs Vital Sign - Last Date Time Temp Pulse Resp B/P Pulse Ox O2 Delivery O2 Flow Rate FiO2 01/29/17 08:57 97 01/29/17 08:02 Supplement Oxygen 01/29/17 07:52 36.7 16 161/69 99 1.00 Intake and Output 01/28/17 01/28/17 01/29/17 Cumulative From/Thru 15:00 23:00 07:00 01/27/17 20:37 - 01/29/17 05:10 Intake Total 2150 ml 731 ml 1065 ml 4885 ml Output Total 1250 ml 800 ml 2050 ml Balance 900 ml -69 ml 1065 ml 2835 ml Intake Oral 0 ml 400 ml 400 ml IV Total 2150 ml 331 ml 1065 ml 4485 ml Output Urine Total 1050 ml 800 ml 1850 ml Estimated Blood Loss 200 ml 200 ml # Bowel Movements 0 0 Exam GENERAL: NAD, Pt laying in bed comfortably HEENT: AT/NC, PERRLA, EOMI, Mucus Membranes are moist CARDIAC: RRR; No M/R/G PULM: CTAB; No wheezes or rhonchi bilaterally NEURO: Alert and oriented x3; Following all commands PSYCH: Normal mood and affect IVs and Medications Medications Reviewed: Medications were reviewed in detail Lab and Diagnostics Result Diagram: 01/29/17 0538 01/29/17 0538 X-Rays, CTs and MRIs X-RAY RIGHT HIP COMPLETE, MINIMUM TWO VIEWS INDICATIONS: Ground level fall, unable to move leg TECHNIQUE: 2 views of the hip were acquired. COMPARISON: None. FINDINGS: Bones: There is a fracture of the proximal right femoral shaft with an intertrochanteric/subtrochanteric region. No dislocation is evident. No suspicious osseous lesions are present. The remainder of the imaged osseous structures appear to be intact. Degenerative changes of the lower lumbar spine , right sacroiliac joint, and pubis symphysis are present. Soft tissues: No suspicious soft tissue calcifications or masses. IMPRESSION: Mildly impacted intertrochanteric proximal right femur fracture. Assessment & Plan Patient is an 86 year old female with a past medical history of Hypothyroidism who is admitted to hospital with Acute Right Hip Fracture. 1. Hip Fracture, Right, Acute - Present on admission - Secondary to mechanical ground level fall - Continue Morphine 1-2 mg IV q 4 hours PRN severe pain - Pt is status post hip repair surgery on 01/28/2017 - Physical Therapy ordered - Pt will need SNF at discharge - Lovenox for 3 weeks for DVT prophylaxis, then Aspirin for 2 weeks thereafter 2. Acute Blood Loss Anemia - EBL is 200 mL from procedure - Repeat CBC in AM - Pt is asymptomatic at this time, and there is no need for transfusion currently 3. Hypothyroidism - Continue home dose of Levothyroxine 4. Disposition - Anticipate discharge to SNF in the next 1-2 days VTE Mechanical Devices: Intermittant Pneumatic CD Gregory Mooney MD Jan 29, 2017 09:29
--- NOTE | 2017-01-29 10:37 | NUR ---
Evaluation completed. Please go to "Notes" then click on "Assessments and Notes" (bottom left corner of screen). Then select appropriate discipline tab on top of screen.
--- NOTE | 2017-01-29 12:48 | NUR ---
POST-OP PROGRESS Percocet 1-2 tabs PO has been effective for pain control. Diet was advanced to a general diet. Tolerating liquids PO and her diet well. Denies nausea. No emesis noted. O2 d/cd. PO2 on room air in the high 90's. Denies SOB. Patient was able to get OOB and sat in the chair for 1 hr. Patient has been adhering to her weight bearing precautions. Dressing is CDI. IFC intact and draining to yellow colored UO. SCD's are on. Patient has been using her light appropriately.
--- NOTE | 2017-01-29 18:03 | NUR ---
Social Work: Initial Assessment Data & Assessment: See Initial Assessment. EMR reviewed. Patient is a 86 y/o female that admitted on 01/27/17 for hip fracture per H&P. SW met with patient to complete initial assessment, discus discharge planning and SW role reviewed. Patient NOK/DPOA is her daughter Cici Hsu [phone]. SW requested a copy of patient's DPOA. Patient confirmed that her PCP is Dr. Philippe Perez and insurance is [facility]. Patient does not have any LTC or VA benefits. Patient's readmit score is 0 no risk. Patient lives in a single level home on the same property with her daughter. Patient has two steps to enter her home. Patient has no DME, No SNF history and no HH history. Patient is aware that SNF has been recommended and patient chose [facility]F. Patient was referred to [facility] and they were given access to the patient's chart. Patient is likely to discharge to SNF via cabulance if accepted. SW will continue to follow and assist patient with discharge planning needs. Plan: Patient is likely to discharge to SNF via cabulance if accepted. SW will continue to follow and assist patient with discharge planning needs. Cathleen Gomez LMSW, CHRIS Addendum: 01/29/17 at 1813 by CATHLEEN GOMEZ Amended: Links added.
[2017-01-30] VITALS (7 sets, daily range): BP systolic 136–149; BP diastolic 55–76; PULSE 92–102; RESP 16–18; O2SAT 90–96
[2017-01-30] MEDS: oxyCODONE-Acetamin 5-325 mg Tablet PO PRN ×3 (00:27→13:31)
[2017-01-30] MEDS: 0.9% Sodium Chloride 1,000 ML IV SCH ×2 (05:00→14:31)
[2017-01-30 05:26] LABS: BASOPHILS % (AUTO) 0.2 % (0-3); EOSINOPHILS % (AUTO) 0.5 % (0-5); MONOCYTES % (AUTO) 13.3 % (4-12); Mean Corpuscular Hemoglobin 29.4 pg (27.0-35.0); Mean Corpuscular Volume 91.1 fL (81-100); NEUTROPHILS % (AUTO) 60.2 % (40-74); Platelet Count 178 bil/L (150-400)
--- NOTE | 2017-01-30 07:26 | NUR ---
Pain Patient reported 10/10 hip pain. 1 tab of Percocet given. Denies nausea at this time. Patient repositions self to comfort and with assistance from staff. Call light and tray table within reach. Will continue to monitor patient hourly.
--- NOTE | 2017-01-30 07:28 | NUR ---
Pain Patient states her pain is 8/10 with activity. Patient receiving 1 Percocet for pain q6, alternating with 1 Roxycodone q4. Patient A&OX3. Vitals stable. Billings patent and draining. Patient touch weight bearing with FWW, Shuffling.
--- NOTE | 2017-01-30 08:58 | NUR ---
COLIN: Patient on day 3 , no initial COLIN done. Print and follow up today!
[2017-01-30] MEDS ORDERED: 0.9% Sodium Chloride 100 ML ONE (09:11)
[2017-01-30] MEDS: Famotidine Inj 20 MG in IV Premix 1 EACH IV SCH (09:11)
[2017-01-30] MEDS: Senna-Docusate 8.6-50 mg Tablet PO SCH ×2 (09:11→21:04)
--- NOTE | 2017-01-30 09:16 | PCM.PNORTH ---
Subjective Date of Service: Jan 30, 2017 Visit Information: Reason for Visit Hip Fracture Surgery/Surgery Date right hip IM nailing 01/28/2017 Post-Op Day # 2 Date of Admission: Jan 27, 2017 at 17:56 Hospital Day # Subjective Patient has just completed OT and is sitting up in a chair. She states the pain is not too bad. She denies feeling weak or dizzy. She was on her feet with therapy yesterday for a couple of steps. She states the toe-touch weightbearing is difficult. Postop General: No Complaints, No Shortness of Breath, No Chest Pain Pain Management: PO Objective Exam Objective Patient is seen sitting up in a chair and then stands in a walker for dressing change with the assistance of OT Vital Signs and I/O Vital Sign - Last Date Time Temp Pulse Resp B/P Pulse Ox O2 Delivery O2 Flow Rate FiO2 01/30/17 07:52 36.9 94 18 148/63 93 Room Air 01/29/17 07:52 1.00 Intake and Output 01/29/17 01/29/17 01/30/17 Cumulative From/Thru 15:00 23:00 07:00 01/27/17 20:37 - 01/30/17 06:38 Intake Total 842 ml 1200 ml 451 ml 7378 ml Output Total 750 ml 1200 ml 600 ml 4600 ml Balance 92 ml 0 ml -149 ml 2778 ml Intake Oral 350 ml 1200 ml 400 ml 2350 ml IV Total 492 ml 51 ml 5028 ml Output Urine Total 750 ml 1200 ml 600 ml 4400 ml Estimated Blood Loss 200 ml # Bowel Movements 0 0 Lab & Micro Results Laboratory Tests Test 01/30/17 04:52 White Blood Count 9.2th/mm3 (3.8-10.1) Red Blood Count 2.69mil/mm3 (3.90-5.20) Hemoglobin 7.9g/dL (12.0-15.6) Hematocrit 24.5% (35.0-46.0) Mean Corpuscular Volume 91.1fL (81-100) Mean Corpuscular Hemoglobin 29.4pg (27.0-35.0) Mean Corpuscular Hemoglobin Concent 32.2% (32.0-37.0) Red Cell Distribution Width 14.8% (12.3-15.4) Platelet Count 178bil/L (150-400) Neutrophils (%) (Auto) 60.2% (40-74) Lymphocytes (%) (Auto) 25.6% (14-46) Monocytes (%) (Auto) 13.3% (4-12) Eosinophils (%) (Auto) 0.5% (0-5) Basophils (%) (Auto) 0.2% (0-3) Sodium Level 141mEq/L (134-144) Potassium Level 3.8mEq/L (3.5-5.2) Chloride Level 106mEq/L (97-108) Carbon Dioxide Level 24mmol/L (18-29) Blood Urea Nitrogen 14mg/dL (8-27) Creatinine 0.63mg/dL (0.57-1.00) Estimat Glomerular Filtration Rate 128mL/min (>59) Glucose Level 102mg/dL (60-99) Calcium Level 8.1mg/dL (8.5-10.1) Total Bilirubin 0.5mg/dL (0.0-1.2) Aspartate Amino Transf (AST/SGOT) 27U/L (0-50) Alanine Aminotransferase (ALT/SGPT) 13U/L (0-32) Alkaline Phosphatase 53U/L (25-165) Total Protein 5.0g/dL (6.4-8.4) Albumin 2.7g/dL (3.4-5.0) Microbiology 01/27/17 Urine Culture - Final, Complete Klebsiella Pneumoniae Result Diagram: 01/30/17 0452 01/30/17 0452 General Appearance: Alert, Oriented X3, Cooperative, No Acute Distress Extremities: Distal Pulses Palpable, No Compartment Syndrom Noted, Thigh & Calf Soft/Nontender Postop Sensory Motor: Distal Motor Intact, NVI Distally SURGICAL WOUND : Wound Location/Description Lateral right hip 3 incisions: Surgical dressing is removed. There is mild ecchymosis and swelling present, as expected. There is no erythema. There is scant serous drainage. Fany are intact. The wounds are cleansed with hydrogen peroxide and dressed with [place] dressings. Incision General Appearance: [place], Well Approximated Dressing & Drainage Status: Changed Activity: Activity per PT, Ambulate with PT (Touchdown weightbearing with the RLE) Catheters: Urethral 2 Way Bill[place] Assessment & Plan Impression Status post right hip IM nailing Postoperative anemia, currently asymptomatic Problems: Plan Weightbearing: Touchdown weightbearing right lower extremity with walker DVT prophylaxis: Lovenox 40 mg subcutaneous 3 weeks followed by aspirin 325 mg once a day 3 weeks Physical therapy for transfers, progressive ambulation, therapeutic exercise Wound care: Dressing change today by PA. Future dressing may be changed every 2 -3 days, or as needed if saturated Continue to monitor H&H. If continues to drop and/or become symptomatic, patient may need a transfusion. Discharge plan: Discharge to long term facility when medically stable in 1 -2 days Follow-up plan: In 2 weeks at [facility] with PA for wound check and at [address] Rizo with x-rays Pain Management: Percocet, oxycodone VTE Prophylaxis: Sub-Q Enoxaparin, SCDs Resuscitation Status: CPR: Attempt Resuscitation [place] Nune[place] PA-C Jan 30, 2017 09:15
--- NOTE | 2017-01-30 09:23 | NUR ---
[facility] accepted with Dr. Ye to follow. HERBER Mathews
--- NOTE | 2017-01-30 09:49 | NUR ---
Evaluation completed. Please go to "Notes" then click on "Assessments and Notes" (bottom left corner of screen). Then select appropriate discipline tab on top of screen.
--- NOTE | 2017-01-30 10:59 | PCM.PNMED ---
Subjective Date of Service Jan 30, 2017 Subjective Pt doing well this morning. She has no complaints at this time. Her Hgb is lower today than yesterday. She denies any weakness, shortness of breath, and dizziness. Exam Vital Signs Vital Sign - Last Date Time Temp Pulse Resp B/P Pulse Ox O2 Delivery O2 Flow Rate FiO2 01/30/17 09:50 95 01/30/17 07:52 36.9 18 148/63 93 Room Air 01/29/17 07:52 1.00 Intake and Output 01/29/17 01/29/17 01/30/17 Cumulative From/Thru 15:00 23:00 07:00 01/27/17 20:37 - 01/30/17 06:38 Intake Total 842 ml 1200 ml 451 ml 7378 ml Output Total 750 ml 1200 ml 600 ml 4600 ml Balance 92 ml 0 ml -149 ml 2778 ml Intake Oral 350 ml 1200 ml 400 ml 2350 ml IV Total 492 ml 51 ml 5028 ml Output Urine Total 750 ml 1200 ml 600 ml 4400 ml Estimated Blood Loss 200 ml # Bowel Movements 0 0 Exam GENERAL: NAD, Pt laying in bed comfortably HEENT: AT/NC, PERRLA, EOMI, Mucus Membranes are moist CARDIAC: RRR PULM: CTAB; No wheezes or rhonchi bilaterally NEURO: Alert and oriented x3; Following all commands PSYCH: Normal mood and affect IVs and Medications Medications Reviewed: Medications were reviewed in detail Lab and Diagnostics Result Diagram: 01/30/1745101/30/17451 X-Rays, CTs and MRIs X-RAY RIGHT HIP COMPLETE, MINIMUM TWO VIEWS INDICATIONS: Ground level fall, unable to move leg TECHNIQUE: 2 views of the hip were acquired. COMPARISON: None. FINDINGS: Bones: There is a fracture of the proximal right femoral shaft with an intertrochanteric/subtrochanteric region. No dislocation is evident. No suspicious osseous lesions are present. The remainder of the imaged osseous structures appear to be intact. Degenerative changes of the lower lumbar spine , right sacroiliac joint, and pubis symphysis are present. Soft tissues: No suspicious soft tissue calcifications or masses. IMPRESSION: Mildly impacted intertrochanteric proximal right femur fracture. Assessment & Plan Patient is an 86 year old female with a past medical history of Hypothyroidism who is admitted to hospital with Acute Right Hip Fracture. 1. Hip Fracture, Right, Acute - Present on admission - Secondary to mechanical ground level fall - Continue Morphine 1-2 mg IV q 4 hours PRN severe pain - Pt is status post left hip ORIF on 01/28/2017 - Physical Therapy to work with patient today - Pt will need SNF at discharge, and has been accepted at a local facility - Continue Lovenox for 3 weeks for DVT prophylaxis, then Aspirin for 2 weeks thereafter 2. Acute Blood Loss Anemia - Hgb lower today - EBL is 200 mL from procedure - Repeat CBC in AM - Pt is asymptomatic at this time, and there is still no need for transfusion currently 3. Hypothyroidism - Continue home dose of Levothyroxine 4. Disposition - Anticipate discharge to SNF in AM as long as H/H stable VTE Prophylaxis: Sub-Q Enoxaparin, SCDs VTE Mechanical Devices: Intermittant Pneumatic CD Resuscitation Status: CPR: Attempt Resuscitation Gregory Mooney MD Jan 30, 2017 10:59
--- NOTE | 2017-01-30 16:16 | NUR ---
Social Work-readiness for discharge: data:EMR reviewed. Pt is on day 3 for hip fracture per H&P. Pt is not medically stable for discharge anticipate tomorrow. PT and OT continue to recommend SNF. SW updated pt and family at bedside that [facility]. Insurance authorization will need to be obtained tomorrow. Paperwork and PASRR In the chart. SW will continue to follow. Assessment:Pt who would benefit from SNF. Plan:[facility] accepted pt with Dr. Ye to follow. Insurance authorization will need to be obtained. Paperwork and PASRR In the chart. SW will continue to follow. HERBER Mathews
[2017-01-31] MEDS: 0.9% Sodium Chloride 1,000 ML IV SCH ×3 (01:00→21:00)
[2017-01-31 03:53] VITALS: BP 157/77; PULSE 90; RESP 14; O2SAT 92
[2017-01-31 04:41] VITALS: PULSE 85
[2017-01-31 05:33] LABS: BASOPHILS % (AUTO) 0.1 % (0-3); EOSINOPHILS % (AUTO) 1.2 % (0-5); MONOCYTES % (AUTO) 11.1 % (4-12); Mean Corpuscular Hemoglobin 28.9 pg (27.0-35.0); Mean Corpuscular Volume 91.1 fL (81-100); NEUTROPHILS % (AUTO) 50.1 % (40-74); Platelet Count 216 bil/L (150-400)
--- NOTE | 2017-01-31 07:10 | NUR ---
NOC PT has minimal pain. All pain managed with 5mg of oxycodone and tylenol. R hip dressing intact.Billings in place and will be removed today. T max over noc 38. Encouraged CDB. Pt eager for d/c today.
--- NOTE | 2017-01-31 07:54 | PCM.PNORTH ---
Subjective Date of Service: Jan 31, 2017 Visit Information: Reason for Visit Hip Fracture Surgery/Surgery Date Post-Op Day # 3 Date of Admission: Jan 27, 2017 at 17:56 Hospital Day # Subjective Patient denies any increasing pain, numbness, tingling, fevers or chills. She states she is feeling "stronger each day." She states she "knows it will be a long hard road" but is eager to get started. She has been up with PT but has "not walked very far." She says she feels most stable when standing and has been compliant with her touchdown weightbearing restrictions. Postop General: No Complaints, No Shortness of Breath, No Chest Pain Pain Management: PO Objective Exam Objective Patient laying in bed. Vital Signs and I/O Vital Sign - Last Date Time Temp Pulse Resp B/P Pulse Ox O2 Delivery O2 Flow Rate FiO2 01/31/17 04:41 85 01/31/17 03:53 38.1 14 157/77 92 Room Air 01/29/17 07:52 1.00 Intake and Output 01/30/17 01/30/17 01/31/17 Cumulative From/Thru 15:00 23:00 07:00 01/27/17 20:37 - 01/31/17 06:52 Intake Total 143 ml 640 ml 350 ml 8511 ml Output Total 1400 ml 1100 ml 7100 ml Balance 143 ml -760 ml -750 ml 1411 ml Intake Oral 640 ml 350 ml 3340 ml IV Total 143 ml 5171 ml Output Urine Total 1400 ml 1100 ml 6900 ml Estimated Blood Loss 200 ml # Bowel Movements 0 Lab & Micro Results Laboratory Tests Test 01/31/17 04:50 White Blood Count 8.2th/mm3 (3.8-10.1) Red Blood Count 2.80mil/mm3 (3.90-5.20) Hemoglobin 8.1g/dL (12.0-15.6) Hematocrit 25.5% (35.0-46.0) Mean Corpuscular Volume 91.1fL (81-100) Mean Corpuscular Hemoglobin 28.9pg (27.0-35.0) Mean Corpuscular Hemoglobin Concent 31.8% (32.0-37.0) Red Cell Distribution Width 14.4% (12.3-15.4) Platelet Count 216bil/L (150-400) Neutrophils (%) (Auto) 50.1% (40-74) Lymphocytes (%) (Auto) 37.1% (14-46) Monocytes (%) (Auto) 11.1% (4-12) Eosinophils (%) (Auto) 1.2% (0-5) Basophils (%) (Auto) 0.1% (0-3) Microbiology 01/27/17 Urine Culture - Final, Complete Klebsiella Pneumoniae Result Diagram: 01/31/17 04501/30/17 0452 General Appearance: Alert, Oriented X3, Cooperative, No Acute Distress Extremities: Distal Pulses Palpable, No Compartment Syndrom Noted, Thigh & Calf Soft/Nontender Postop Sensory Motor: Distal Motor Intact, Movement in Toes, Distal Sensation Intact, NVI Distally SURGICAL WOUND : Incision General Appearance: [place], Well Approximated Dressing & Drainage Status: Changed Activity: Activity per PT, Ambulate with PT (Touchdown weightbearing with the RLE) Catheters: Urethral 2 Way Bill[place] (D/C today) Assessment & Plan Impression POD#3 right hip IM nailing Postoperative anemia, currently asymptomatic Problems: Plan Weightbearing: Touchdown weightbearing right lower extremity with walker DVT prophylaxis: Lovenox 40 mg subcutaneous 3 weeks followed by aspirin 325 mg once a day 3 weeks Physical therapy for transfers, progressive ambulation, therapeutic exercise Wound care: Dressing may be changed every 2-3 days, or as needed if saturated. Discharge plan: Discharge to shelter facility when medically stable, most likely today Follow-up plan: In 2 weeks at [facility] with AMMY for wound check and at [address] Rizo with x-rays VTE Prophylaxis: Sub-Q Enoxaparin, SCDs Resuscitation Status: CPR: Attempt Resuscitation Jeny Jiang PA-C Jan 31, 2017 07:54
--- NOTE | 2017-01-31 07:55 | PCM.DIORTH ---
Ortho Discharge Instruction Date of Service: Jan 31, 2017 Dates of Hospitalization Date of Hospital Admission Jan 27, 2017 at 17:56 Providers Admitting Physician: Gregory Mooney MD Primary Care Physician: Philippe Sinclair MD Attending Physician: Gregory Mooney MD Activity Discharge Activity-General: Be up and about, Ice incision 3-5 time/day for 20min Right Lower Extremity: Toe-Touch Weight Bearing Discharge Assist Device: Front Wheeled Walker Dressing and Incisional Care Discharge Dressing Care: Keep dressing clean, dry & intact Discharge Hygiene: May shower (with dressing covered) Additional Instructions Discharge Instructions Weightbearing: Touchdown weightbearing right lower extremity with walker DVT prophylaxis: Lovenox 40 mg subcutaneous 3 weeks followed by aspirin 325 mg once a day 3 weeks Physical therapy for transfers, progressive ambulation, therapeutic exercise Wound care: Dressing may be changed every 2-3 days, or as needed if saturated. Discharge plan: Discharge to group home facility when medically stable, most likely today Follow-up plan: In 2 weeks at [facility] with AMMY for wound check and at [address] Rizo with x-rays Jeny Jiang PA-C Jan 31, 2017 07:55
[2017-01-31] MEDS: Senna-Docusate 8.6-50 mg Tablet PO SCH ×2 (09:10→20:35)
--- NOTE | 2017-01-31 10:39 | NUR ---
Miya Ramirez CM at [facility] called and approved patient for transfer to [facility] today. Updated PIANO PROFESSOR
--- NOTE | 2017-01-31 11:24 | PCM.PNMED ---
Subjective Date of Service Jan 31, 2017 Subjective Pt developed a fever overnight. Pt denies current fever and chills. She denies dysuria, urinary urgency or frequency. She denies any flank pain. Urine culture positive for Klebsiella. Pt has no other complaints or concerns at this time. Exam Vital Signs Vital Sign - Last Date Time Temp Pulse Resp B/P Pulse Ox O2 Delivery O2 Flow Rate FiO2 01/31/17 09:33 Room Air 01/31/17 04:41 85 01/31/17 03:53 38.1 14 157/77 92 01/29/17 07:52 1.00 Intake and Output 01/30/17 01/30/17 01/31/17 Cumulative From/Thru 15:00 23:00 07:00 01/27/17 20:37 - 01/31/17 06:52 Intake Total 143 ml 640 ml 350 ml 8511 ml Output Total 1400 ml 1100 ml 7100 ml Balance 143 ml -760 ml -750 ml 1411 ml Intake Oral 640 ml 350 ml 3340 ml IV Total 143 ml 5171 ml Output Urine Total 1400 ml 1100 ml 6900 ml Estimated Blood Loss 200 ml # Bowel Movements 0 Exam GENERAL: NAD, Pt laying in bed comfortably HEENT: AT/NC, PERRLA, EOMI, Mucus Membranes are moist CARDIAC: RRR; No M/R/G PULM: CTAB; No wheezes or rhonchi bilaterally NEURO: Alert and oriented x3; Following all commands PSYCH: Normal mood and affect IVs and Medications Medications Reviewed: Medications were reviewed in detail Lab and Diagnostics Result Diagram: 01/31/17 0450 01/30/17 0452 X-Rays, CTs and MRIs X-RAY RIGHT HIP COMPLETE, MINIMUM TWO VIEWS INDICATIONS: Ground level fall, unable to move leg TECHNIQUE: 2 views of the hip were acquired. COMPARISON: None. FINDINGS: Bones: There is a fracture of the proximal right femoral shaft with an intertrochanteric/subtrochanteric region. No dislocation is evident. No suspicious osseous lesions are present. The remainder of the imaged osseous structures appear to be intact. Degenerative changes of the lower lumbar spine , right sacroiliac joint, and pubis symphysis are present. Soft tissues: No suspicious soft tissue calcifications or masses. IMPRESSION: Mildly impacted intertrochanteric proximal right femur fracture. Assessment & Plan Patient is an 86 year old female with a past medical history of Hypothyroidism who is admitted to hospital with Acute Right Hip Fracture. 1. Hip Fracture, Right, Acute - Present on admission - Secondary to mechanical ground level fall - Continue Morphine 1-2 mg IV q 4 hours PRN severe pain - Pt is status post left hip ORIF on 01/28/2017 - Physical Therapy to continue to work with patient today - Pt will need SNF at discharge, and has been accepted at a local facility - Continue Lovenox for 3 weeks for DVT prophylaxis, then Aspirin for 3 weeks thereafter 2. Acute Blood Loss Anemia - Hgb stable - EBL is 200 mL from procedure - Repeat CBC in AM - Pt is asymptomatic at this time, and there is still no need for transfusion currently 3. Acute UTI - Present on admission - Urine culture positive for Klebsiella - Pt is "allergic to all antibiotics" - She appears asymptomatic from his UTI currently - She did receive a dose of IV Daptomycin in the ER - Repeat UA with culture if indicated - Pt did have a fever overnight however she is now afebrile 4. Hypothyroidism - Continue home dose of Levothyroxine 5. Disposition - Anticipate discharge to SNF in AM as long as H/H stable and she remains afebrile VTE Prophylaxis: Sub-Q Enoxaparin, SCDs VTE Mechanical Devices: Intermittant Pneumatic CD Resuscitation Status: CPR: Attempt Resuscitation Gregory Mooney MD Jan 31, 2017 11:24
--- NOTE | 2017-01-31 11:53 | NUR ---
COLIN signed @ 921 AM
[2017-01-31 12:10] VITALS: BP 130/68; PULSE 91; RESP 17; O2SAT 95
[2017-01-31 12:14] LABS: APPEARANCE,URINE HAZY (CLEAR,HAZY); COLOR,URINE YELLOW (YELLOW); OCCULT BLOOD,URINE SMALL (NEGATIVE); UROBILINOGEN,URINE NORMAL (NORMAL)
[2017-01-31 12:35] VITALS: PULSE 84
[2017-01-31 16:09] VITALS: BP 123/65; PULSE 83; RESP 20; O2SAT 96
--- NOTE | 2017-01-31 19:03 | NUR ---
afebrile all shift, pt feels "great", taught her to use incentive spirometer, she has no congestion or cough, lungs sound clear, wall removed and pt voided
[2017-01-31 20:11] VITALS: BP 120/66; PULSE 83; RESP 21; O2SAT 92
--- NOTE | 2017-01-31 20:38 | CONS ---
[address] [address] CONSULTATION REPORT PATIENT: PRASANNA ALONSO : 1930 MR#: [id number] ADMIT: 01/27/2017 JOB ID: [id number] DATE OF SERVICE: 01/30/[address] Mooney for this consult. REASON FOR CONSULTATION: Postoperative fever. HISTORY OF THE PRESENT ILLNESS: The patient is a reasonably healthy, 86-year-old woman who really only suffers from hypothyroidism. She was at home, late on January 27, when she tripped and then fell and fractured her right hip. She was immediately unable to move and had to summon help to get transportation to the hospital for her acute right hip fracture. The patient states there was no loss of consciousness and she simply tripped and then fell. She states she had recently moved a chair to reorganize her living room and unfortunately this change in the configuration of her room caused her to trip and then she did not have the chair to catch her balance and fell all the way to the floor awkwardly, causing hip fracture. Prior to the hip fracture, she had been feeling fine without any fevers, chills, sweats, urgency, frequency, dysuria, or flank pain. She was taken to the operating room by Dr. Quinton Rizo on the for comminuted right intertrochanteric/subtrochanteric fracture. This was a difficult reverse oblique fracture. There were least six bony fragments, unfortunately. Dr. Rizo performed an open reduction, internal fixation and sent appropriate samples to rule out pathologic fracture. Dr. Rizo called me while I was away for the weekend to discuss preop antibiotics as this patient reports the unusual story of being allergic to ALL ANTIBIOTICS. I recommended giving the patient daptomycin instead of cefazolin or vancomycin preoperatively because it is highly unlikely the patient has ever received this and it would not fall under the classification of all antibiotics that she has tried before at least. The daptomycin was given uneventfully and the patient got through her surgery without difficulty. Postoperatively, the patient had a single temperature spike to 38.1 degrees at 4 a.m. this morning. This was entirely asymptomatic as the patient was sleeping and she thinks that she just had on too many blankets. The patient denies having had any fevers, chills, or sweats, either before her injury or after. She further denies any sore throat, cough, shortness of breath, nausea, vomiting, diarrhea, dysuria, urgency, or frequency. She briefly had a Billings catheter but that is now out. ID consultation is requested this afternoon regarding whether or not she may in fact have an infection at this point, and if in fact she does have an infection, what antibiotics would be appropriate in this woman who reports allergies to ALL ANTIBIOTICS. PAST MEDICAL HISTORY: 1. Hypothyroidism. 2. Ventral hernia repair. SOCIAL HISTORY: The patient does not drink alcohol and does not smoke. She lives with her daughter on [facility]. FAMILY HISTORY: Not obtainable as the patient is adopted. REVIEW OF SYSTEMS: Was done. The patient today denies headache, sore throat, stiff neck, cough, shortness of breath, chest pain, nausea, vomiting, diarrhea, dysuria, urgency, frequency, suprapubic pain, flank pain, or pain in the left lower extremity. She has no edema. Note, she has no neurologic deficits. She does have pain at the site of her extensive right femoral repair.Remainder of ROS negative PHYSICAL EXAMINATION: Reveals an afebrile woman, temp 36.6, pulse 83, respiratory rate 20, blood pressure 123/65. She is saturating well on room air and looks well. Her mental status is completely clear. Head is without any trauma or temporal wasting. Eyes without conjunctivitis. Oral cavity: No thrush or hairy leukoplakia. Neck free of adenopathy. Neck is supple. Lungs quite clear. Cardiac tones with a 2/6 murmur heard best along the left lower sternal border but radiates towards the aortic area. The patient says she has had this murmur for a long time. The abdomen is soft and nontender. There is no organomegaly. The right lateral hip has appropriate dressings in place after the ORIF that was done January 28. There is no cellulitis, warmth or erythema about the incision site, though there is some mild tenderness. The right lower extremity below the knee appears benign as does the entire left lower extremity. There is no synovitis, edema, cellulitis or skin breakdown. Neurologically, the patient can move all of her extremities but obviously with difficulty on the right leg as she has the recent fracture. No other notable abnormalities on physical. LABORATORIES: Include white count 9000, when she came in. Had previously bumped to 11,000 postop and is now back to 8000. At no point did she have a neutrophil predominance. Her creatinine 0.63 yesterday. Albumin 2.7. LFTs normal. Urinalysis on admission had 6-10 white cells, which is entirely normal for an 86-year-old. Another urinalysis done this morning had 11-50 white cells. INR was normal when she was admitted. Urine culture done on admission grew Klebsiella pneumoniae, which is fairly sensitive except borderline resistant to nitrofurantoin and completely resistant to ampicillin. IMAGING: Includes a number of orthopedic films including a CT scan that shows a comminuted fracture of the proximal right femur involving the base of the femoral neck and subtrochanteric regions. An ankle x-ray shows no fracture. A chest x-ray shows diffuse scarring with atelectasis. IMPRESSION: At this point, I see no convincing evidence this patient is or has been infected since admission. She adamantly denies any symptoms of infection, including, fever, chills or sweats, but more importantly, perhaps no urgency, frequency, dysuria, suprapubic pain or flank pain. Her exam is really quite benign and she has never had a neutrophilia or any other lab studies that would be diagnostic of infection. Her initial urinalysis on admission had 6-10 white cells and she was asymptomatic, so I would classify the Klebsiella found in the urine on admission as strictly asymptomatic bacteriuria. I doubt that this situation has changed though will continue to watch her fever curve for a bit, but most likely I suspect this was an isolated low-grade temperature spike and the patient does not have urinary tract infection or any other significant infection at this juncture. RECOMMENDATIONS: 1. No antibiotics at this time. 2. Will watch the fever curve overnight. If there are no additional temperature spikes I would not treat her urinary tract colonization as this is common in elderly women and likely represents asymptomatic bacteriuria rather than any infectious source of concern. 3. Note that multiple recent articles, including a recent article from [facility], showed that asymptomatic bacteriuria in the setting of even joint replacement does not predispose to infections with the organism found in the urinary tract and there is no role for prophylaxis in this situation. DANAE
[2017-02-01 01:13] VITALS: BP 146/73; PULSE 87; RESP 20; O2SAT 94
[2017-02-01 04:34] VITALS: PULSE 84
[2017-02-01 04:36] VITALS: BP 156/74; PULSE 89; RESP 20; O2SAT 95
[2017-02-01] MEDS: 0.9% Sodium Chloride 1,000 ML IV SCH (07:00)
--- NOTE | 2017-02-01 07:23 | NUR ---
Pain Patient remains Afebrile over this shift. Patient states she isn't having much pain this shift. Patient A&OX3. Up with one person assist to bedside commode. Patient voiding well since Billings was removed.
[2017-02-01] MEDS: oxyCODONE-Acetamin 5-325 mg Tablet PO PRN ×2 (07:31→11:39)
[2017-02-01] MEDS ORDERED: ENOX40DI8 SUBQ (08:24)
[2017-02-01] MEDS ORDERED: Acetaminophen PO (08:24)
[2017-02-01] MEDS: Senna-Docusate 8.6-50 mg Tablet PO SCH (08:41)
--- NOTE | 2017-02-01 09:31 | NUR ---
Faxed orders and placed copy in chart, order to [facility] and spoke with Emy in admissions they will plan to do apple picker at 1230PM Updated [employer]PER[employer]
--- NOTE | 2017-02-01 10:25 | NUR ---
Prescriptions faxed to [facility], placed back in envelope. HERBER White Brick Cleaner
--- NOTE | 2017-02-01 10:53 | PCM.PNORTH ---
Subjective Date of Service: Feb 01, 2017 Visit Information: Reason for Visit Hip Fracture Surgery/Surgery Date Right hip IM nailing 01/28/2017 Post-Op Day # 4 Date of Admission: Jan 27, 2017 at 17:56 Hospital Day # Subjective Patient reports she is scheduled for transfer to SNF today at 12:30. Postop General: No Complaints, No Shortness of Breath, No Chest Pain Pain Management: PO Objective Exam Objective Patient is seen sitting up in bed Vital Signs and I/O Vital Sign - Last Date Time Temp Pulse Resp B/P Pulse Ox O2 Delivery O2 Flow Rate FiO2 02/01/17 07:26 Supplement Oxygen 02/01/17 04:36 36.7 89 20 156/74 95 01/29/17 07:52 1.00 Intake and Output 01/31/17 01/31/17 02/01/17 Cumulative From/Thru 15:00 23:00 07:00 01/27/17 20:37 - 02/01/17 06:15 Intake Total 1300 ml 400 ml 33884 ml Output Total 700 ml 850 ml 8650 ml Balance 600 ml -450 ml 1561 ml Intake Oral 1300 ml 400 ml 5040 ml IV Total 5171 ml Output Urine Total 700 ml 850 ml 8450 ml Estimated Blood Loss 200 ml # Bowel Movements 0 Lab & Micro Results Laboratory Tests Test 01/31/17 11:40 Urine Color Yellow (YELLOW) Urine Appearance Hazy (CLEAR,HAZY) Urine pH 6.0 (5.0-8.0) Urine Specific [place] 1.005 (1.003-1.035) Urine Protein Tracemg/dL (NEG,TRACE) Urine Glucose (UA) Negativemg/dL (NEGATIVE) Urine Ketones Negativemg/dL (NEGATIVE) Urine Occult Blood Small (NEGATIVE) Urine Nitrite Positive (NEGATIVE) Urine Bilirubin Negative (NEGATIVE) Urine Urobilinogen Normalmg/dL (NORMAL) Urine Leukocyte Esterase Large (NEGATIVE) Urine RBC 0-2/hpf (0-2) Urine WBC 11-50/hpf (0-5) Urine Epithelial Cells Occasional/hpf (NONE-MOD) Urine Crystals None seen (NONE SEEN) Urine Bacteria Many/hpf (NONE-FEW) Urine Hyaline Casts None/lpf (NONE) Urine Granular Casts None seen (NONE SEEN) Urine Waxy Casts None seen (NONE SEEN) Urine Red Blood Cell Casts None seen (NONE SEEN) Urine White Blood Cell Casts None seen (NONE SEEN) Urine Mucus None seen (None Seen) Urine Trichomonas None seen (NONE SEEN) Urine Yeast None (NONE SEEN) Urinalysis Comment None Urine Culture Reflexed Indicated Microbiology 01/31/17 Urine Culture - Preliminary, Resulted Result Diagram: 01/31/17 0450 01/30/17 0452 General Appearance: Alert, Oriented X3, Cooperative, No Acute Distress Extremities: Distal Pulses Palpable, No Compartment Syndrom Noted, Thigh & Calf Soft/Nontender Postop Sensory Motor: Distal Motor Intact, NVI Distally SURGICAL WOUND : Dressing & Drainage Status: Intact Activity: Activity per PT, Ambulate with PT (Touchdown weightbearing with the RLE) Assessment & Plan Impression status post right hip IM nailing Problems: Plan Toe touch weight bearing right LE with walker Change dressing every 2-3 days as needed if saturated. Keep dressing clean and dry Follow up at [facility] 02/14 or 02/15 with PA for wound check, staple removal and xrays right femur AP & lateral views VTE Prophylaxis: Sub-Q Enoxaparin, SCDs Resuscitation Status: CPR: Attempt Resuscitation GreenleafXiomara hilario PA-C Feb 01, 2017 10:53
--- NOTE | 2017-02-01 11:08 | NUR ---
Social Work-discharge: data:EMR reviewed. Pt is on day 5 for hip fracture per H&P. Pt is medically stable for discharge. PT and OT continue to recommend SNF. Insurance authorization has been obtained. UR specialist arranged transport via [facility] at 1230 and created packet. SW updated pt and daughter, both agreeable. RN,UC,pt/family, and [facility] Lilly all updated and agreeable to plan. Assessment:Pt who would benefit from SNF. Plan:Pt to discharge to [facility] today via [facility] at 1230. Insurance authorization has been obtained. RN,UC,pt/family, and [facility] Lilly all updated and agreeable to plan. HERBER Mathews
--- NOTE | 2017-02-01 12:08 | PATH ---
SURGICAL PATHOLOGY Attending Physician:Chago Rojo CASE STATUS: Signed Out PATIENT NAME: PRASANNA ALONSO PID: [id number] : 1930 DATE COLLECTED:01/28/2017 00:00 SPECIMEN: Bone, Biopsy CLINICAL HISTORY: RIGHT HIP FX 1). RIGHT HIP BONE FINAL DIAGNOSIS: Bone, Right Hip: Bone fragments with no evidence of malignancy. ICD10: S72.9 GROSS DESCRIPTION: The specimen is received in one formalin filled container labeled with the patient's name, sublabeled "right hip bone" and consists of 4 yellow portions of soft tissue which aggregate to 1.0 x 0.6 x 0.6 CM. The specimen is inked blue and entirely submitted in cassette A. The remaining sample consists of an aggregate of daley-steven friable material or bone which aggregates to 2.0 x 1.0 x 0.5 CM. The specimen is entirely submitted in cassette B, and will be placed in decal for softening. 01/30/2017 [facility] ICD-9 CODES: CPT CODES: 30914, 64800 Electronically Signed Out Michael Lucio MD [facility] [address], [place] [address] Technical component performed at [facility], [address] [place] [address] Ave[address], [place], [address]
--- NOTE | 2017-02-01 12:50 | NUR ---
Discharge Note Pt reported good pain control with PRN Percocet. Pt A/O, able to transfer to [facility] with one assist. Report given to Madelaine at [facility]. Pt transferred out with all belongings.
--- NOTE | 2017-02-01 13:27 | PCM.DC.MED ---
Discharge Summary Date of Service Feb 01, 2017 Dates of Hospitalization Date of Hospital Admission Jan 27, 2017 at 17:56 Date of Discharge: Feb 01, 2017 Providers: Admitting Physician: Holland Ruby MD Primary Care Physician: Philippe Sinclair MD Attending Physician: Holland Ruby MD Diagnosis at Time of Discharge Diagnosis at Time of Discharge 1. Hip Fracture, Right 2. Mechanical Fall 3. Hypothyroidism 4. Asymptomatic Bacteriuria Consultations 1. Orthopedic Surgery 2. Infectious Disease Procedures XRay, CTs & MRIs X-RAY RIGHT HIP COMPLETE, MINIMUM TWO VIEWS INDICATIONS: Ground level fall, unable to move leg TECHNIQUE: 2 views of the hip were acquired. COMPARISON: None. FINDINGS: Bones: There is a fracture of the proximal right femoral shaft with an intertrochanteric/subtrochanteric region. No dislocation is evident. No suspicious osseous lesions are present. The remainder of the imaged osseous structures appear to be intact. Degenerative changes of the lower lumbar spine , right sacroiliac joint, and pubis symphysis are present. Soft tissues: No suspicious soft tissue calcifications or masses. IMPRESSION: Mildly impacted intertrochanteric proximal right femur fracture. Brief History Patient is an 86 year old female with a past medical history of Hypothyroidism. She presents to the ER at [facility] after she suffered a fall earlier today. She was trying to move her recliner and tripped over her own feet and lost her balance. She fell to the ground hitting her head against a table. Pt immediately felt extreme pain in her right hip. Pt was unable to move. Pts daughter found her laying on the floor approximately 10 minutes after she fell. Pt denies ever losing conciousness. Pt denies any recent weakness, chest pain , shortness of breath, palpitations, or visual changes. No other complaints or concerns at this time. Hospital Course Patient is an 86 year old female with a past medical history of Hypothyroidism who is admitted to hospital with Acute Right Hip Fracture. 1. Hip Fracture, Right, Acute - Present on admission - Secondary to mechanical ground level fall - Pt is status post left hip ORIF on 01/28/2017 - Physical Therapy worked with patient while in hospital - Continue Lovenox for 3 weeks for DVT prophylaxis, then Aspirin for 3 weeks thereafter - Pt is discharged to SNF today in good/stable condition 2. Acute Blood Loss Anemia - Hgb stable - EBL is 200 mL from procedure - Pt is asymptomatic at this time, and there was no need for transfusion while pt in hospital 3. Asymptomatic Bacteriuria - ID consulted and felt no antibiotics were required - Urine culture was positive for Klebsiella Pneumoniae 4. Hypothyroidism - Continue home dose of Levothyroxine Exam Vital Signs (Last) Date Time Temp Pulse Resp B/P Pulse Ox O2 Delivery O2 Flow Rate FiO2 02/01/17 07:26 Supplement Oxygen 02/01/17 04:36 36.7 89 20 156/74 95 01/29/17 07:52 1.00 Exam GENERAL: NAD, Pt laying in bed comfortably HEENT: AT/NC, PERRLA, EOMI, Mucus Membranes are moist CARDIAC: RRR; No M/R/G PULM: CTAB; No wheezes or rhonchi bilaterally NEURO: Alert and oriented x3; Following all commands PSYCH: Normal mood and affect Test 01/27/17 14:53 01/30/17 04:52 01/31/17 04:50 01/31/17 11:40 Prothrombin Time 9.7sec (8.1-12.5) Prothromb Time International Ratio 0.91ratio Sodium Level 141mEq/L (134-144) Potassium Level 3.8mEq/L (3.5-5.2) Chloride Level 106mEq/L (97-108) Carbon Dioxide Level 24mmol/L (18-29) Blood Urea Nitrogen 14mg/dL (8-27) Creatinine 0.63mg/dL (0.57-1.00) Estimat Glomerular Filtration Rate 128mL/min (>59) Glucose Level 102mg/dL (60-99) Calcium Level 8.1mg/dL (8.5-10.1) Total Bilirubin 0.5mg/dL (0.0-1.2) Aspartate Amino Transf (AST/SGOT) 27U/L (0-50) Alanine Aminotransferase (ALT/SGPT) 13U/L (0-32) Alkaline Phosphatase 53U/L (25-165) Total Protein 5.0g/dL (6.4-8.4) Albumin 2.7g/dL (3.4-5.0) White Blood Count 8.2th/mm3 (3.8-10.1) Red Blood Count 2.80mil/mm3 (3.90-5.20) Hemoglobin 8.1g/dL (12.0-15.6) Hematocrit 25.5% (35.0-46.0) Mean Corpuscular Volume 91.1fL (81-100) Mean Corpuscular Hemoglobin 28.9pg (27.0-35.0) Mean Corpuscular Hemoglobin Concent 31.8% (32.0-37.0) Red Cell Distribution Width 14.4% (12.3-15.4) Platelet Count 216bil/L (150-400) Neutrophils (%) (Auto) 50.1% (40-74) Lymphocytes (%) (Auto) 37.1% (14-46) Monocytes (%) (Auto) 11.1% (4-12) Eosinophils (%) (Auto) 1.2% (0-5) Basophils (%) (Auto) 0.1% (0-3) Urine Color Yellow (YELLOW) Urine Appearance Hazy (CLEAR,HAZY) Urine pH 6.0 (5.0-8.0) Urine Specific [place] 1.005 (1.003-1.035) Urine Protein Tracemg/dL (NEG,TRACE) Urine Glucose (UA) Negativemg/dL (NEGATIVE) Urine Ketones Negativemg/dL (NEGATIVE) Urine Occult Blood Small (NEGATIVE) Urine Nitrite Positive (NEGATIVE) Urine Bilirubin Negative (NEGATIVE) Urine Urobilinogen Normalmg/dL (NORMAL) Urine Leukocyte Esterase Large (NEGATIVE) Urine RBC 0-2/hpf (0-2) Urine WBC 11-50/hpf (0-5) Urine Epithelial Cells Occasional/hpf (NONE-MOD) Urine Crystals None seen (NONE SEEN) Urine Bacteria Many/hpf (NONE-FEW) Urine Hyaline Casts None/lpf (NONE) Urine Granular Casts None seen (NONE SEEN) Urine Waxy Casts None seen (NONE SEEN) Urine Red Blood Cell Casts None seen (NONE SEEN) Urine White Blood Cell Casts None seen (NONE SEEN) Urine Mucus None seen (None Seen) Urine Trichomonas None seen (NONE SEEN) Urine Yeast None (NONE SEEN) Urinalysis Comment None Urine Culture Reflexed Indicated Discharge Medications Discharge Medications Enoxaparin Sodium (Enoxaparin Sodium) 40 Mg/0.4 Ml Syringe 40 MG SUBQ Q24 Prescribed by: HOLLAND RUBY MD Levothyroxine (Levothyroxine) 75 Mcg Tablet 75 MCG PO QAM (Reported) As needed ([Acetaminophen]) 325 MG TABLET 650 MG PO Q4H PRN PRN For Pain Prescribed by: HOLLAND RUBY MD Followup Plan Discharge Diet: Heart Healthy Discharge Activity: No restrictions Follow-up with PCP in: 1 week Provider: Quinton Rizo MD Follow-up in: 2 weeks (Pt to call for an appointment) Time spent 35 minutes Holland Ruby MD Feb 01, 2017 13:27
[2017-02-01] MEDS ORDERED: OXYC1TAB24 PO (14:50)
--- NOTE | 2017-02-01 20:35 | PROG NOTE ---
[address] [address] PROGRESS NOTE PATIENT: PRASANNA ALONSO : 1930 MR#: [id number] ADMIT: 01/27/2017 JOB ID: [id number] DATE: 02/01/2017 REASON FOR FOLLOWUP: Asymptomatic bacteriuria in a patient who recently had an ORIF of her hip following a fall. INTERVAL HISTORY: Overnight, the patient has been free of fevers, chills, or sweats. She has no cough, shortness of breath or dysuria. PHYSICAL EXAMINATION: Reveals a woman who has been afebrile except for a single temperature spike to 38.1 in the breast puller hours on the and which she attributed to using too many blankets. Otherwise, no fever. Pulse in the 80s, respiratory rate 20, blood pressure 156/74. She is saturating well on room air. She is alert, oriented and conversant. Lungs clear. Cardiac tones without change. No skin rash. White count 8200 yesterday, not repeated today. Urinalysis, of course, had mild pyuria and the culture grew Klebsiella, but the patient has been adamant that she has no urinary tract symptoms. A repeat urine culture is also appears to be positive but, again, without any symptoms at all. There is no indication that treating this would be beneficial even in the setting of the recent hip surgery. IMPRESSION: Asymptomatic bacteriuria in a patient with multiple antibiotic allergies who received daptomycin as her preoperative antibiotic for her hip pending following her complicated comminuted fracture. RECOMMENDATIONS: 1. The patient is cleared for discharge from an Infectious Disease point of view. 2. No antibiotics at this time. ID will be signing off.
== END 2017-02-01 12:39 | DRG 481 ==
LOC: EDBD 14:24 → SED 14:24 → OSC 17:56
PROVIDERS: ADMIT Family Medicine; ATTEND Family Medicine
PROC: 0QS804Z Reposition Right Femoral Shaft with Internal Fixation Device, Open Approach (ICD-10-PCS; 2017-01-28)
PROC: 0QS604Z Reposition Right Upper Femur with Internal Fixation Device, Open Approach (ICD-10-PCS; principal; 2017-01-28 09:00)
DX: S72.141A Displaced intertrochanteric fracture of right femur, initial encounter for closed fracture (principal); D62 Acute posthemorrhagic anemia; S72.351A Displaced comminuted fracture of shaft of right femur, initial encounter for closed fracture; E03.9 Hypothyroidism, unspecified; W01.190A Fall on same level from slipping, tripping and stumbling with subsequent striking against furniture, initial encounter; Y93.89 Activity, other specified; Y92.008 Other place in unspecified non-institutional (private) residence as the place of occurrence of the external cause; R82.71 Bacteriuria